=== PATIENT | male | born 1955 | race Caucasian/White ===

== ENCOUNTER → 2017-06-29 | Day surgery (SDC) | payer OTHER ==
[2017-06-28 09:00] VITALS: Ht 180.3 cm; Wt 80.9 kg
[~2017-06-29] VITALS: Ht 180.3 cm; Wt 80.9 kg
[~2017-06-29] MED LIST: ASPI81TA28 PO; ATEN50TA PO; CLOP1TAB15 PO; HYZ/10015 PO; IMDSR/30 PO; LACTATED RINGER'S 1000ML 1,000 ML IV ONE; LIDOCAINE HCL 2% 2 ML VIAL (20MG/ML) ONE; NTRGSL/4 UT; OMEP20TA PO; ONDANSETRON INJ 2 MG/ML 2 ML VIAL IV PRN; PROPOFOL IV EMULSION 10 MG/ML 20 ML VIAL IV ONE; ROSU5TAB PO
[2017-06-29 10:25] VITALS: TEMP 36.4
--- NOTE | 2017-06-29 10:31 | Endo History and Physical ---
History & Physical Date of Service: Jun 29, 2017. Chief Complaint: bloody stools and weight loss Referring Physician: Dr. Frank Leslie History of Present Illness Patient presents for colonoscopy to evaluate recurrent hematochezia. He also notes having some weight loss over the past 2-3 months. The patient did have a prior colonoscopy about 5 years ago. There is no family history of colorectal cancer stomach cancer or pancreatic cancer. Past Surgical History Hx Cardiac Surgery: Yes (HEART CATH, NO STENTS; RT CAROTID ARTERY STENT, LT ENDARTARECTOMY) Hx Internal Defibrillator: No Hx Pacemaker: No Hx Abdominal Surgery: Yes (BALWINDER) Hx of Implantable Prosthesis: No Hx Post-Op Nausea and Vomiting: No Hx Cancer Surgery: No Hx Thoracic Surgery: No Hx Orthopedic: No Hx Urinary Tract Surgery: No Family History None Social History Smoking Status: Current Every Day Smoker Hx Substance Use: No Hx Alcohol Use: No Allergies Coded Allergies: No Known Allergies (Verified , 06/29/17) Current Medications Reported Home Medications Medications Dose Route/Sig Max Daily Dose Days Date Category Tenormin (Atenolol) 50 Mg Tab 50 Mg PO QAM 06/28/17 Reported Nitrostat (Nitroglycerin) 0.4 Mg Tab 0.4 Mg UT UD PRN 06/28/17 Reported Hyzaar 25MG/100MG (HCTZ/Losartan Potassium) Tab 1 Tab PO QAM 06/28/17 Reported Omeprazole 20 Mg Tab 1 Tab PO QAM 06/28/17 Reported Crestor (Rosuvastatin Calcium) 5 Mg Tab 5 Mg PO QAM 06/28/17 Reported Plavix (Clopidogrel Bisulfate) 75 Mg Tab 75 Mg PO QAM 06/28/17 Reported Aspirin Ec (Aspirin) 81 Mg Tab 81 Mg PO QAM 06/28/17 Reported Vital Signs Weight (Kilograms): 80.91 Height (Feet): 5 Height (Inches): 11 Date Time Temp Pulse Resp B/P (MAP) Pulse Ox O2 Delivery O2 Flow Rate FiO2 06/29/17 10:25 36.4 95 20 151/68 (95) 100 Room Air Physical Exam General Appearance: no apparent distress Respiratory/Chest: Auscultation: breath sounds normal, no wheezing Cardiovascular: Heart Auscultation: RRR Abdomen: Inspection & Palpation: soft Assessment and Plan Colonoscopy for evaluation of hematochezia. We've discussed the risks and benefits of the procedure to include bleeding, infection, perforation, pain and missed polyps.
--- NOTE | 2017-06-29 11:02 | GI REPORT ---
Procedure Date: 06/29/2017 10:43 AM Procedure: Colonoscopy Indications: High risk colon cancer surveillance: Personal history of colonic polyps Medicines: Monitored Anesthesia Care Complications: No immediate complications. Estimated blood loss: Minimal. Estimated Blood Loss: Estimated blood loss was minimal. Procedure: Pre-Anesthesia Assessment: - Prior to the procedure, a History and Physical was performed, and patient medications, allergies and sensitivities were reviewed. The patient's tolerance of previous anesthesia was reviewed. - The risks and benefits of the procedure and the sedation options and risks were discussed with the patient. All questions were answered and informed consent was obtained. - Patient identification and proposed procedure were verified prior to the procedure by the physician, the nurse and the tire trucker. The procedure was verified in the procedure room. - Pre-procedure physical examination revealed no contraindications to sedation. - ASA Grade Assessment: III - A patient with severe systemic disease. - After reviewing the risks and benefits, the patient was deemed in satisfactory condition to undergo the procedure. - The anesthesia plan was to use monitored anesthesia care (MAC). - Immediately prior to administration of medications, the patient was re-assessed for adequacy to receive sedatives. - The heart rate, respiratory rate, oxygen saturations, blood pressure, adequacy of pulmonary ventilation, and response to care were monitored throughout the procedure. - The physical status of the patient was re-assessed after the procedure. After I obtained informed consent, the scope was passed under direct vision. Throughout the procedure, the patient's blood pressure, pulse, and oxygen saturations were monitored continuously. The scope was introduced through the anus and advanced to the terminal ileum. The colonoscopy was performed without difficulty. The patient tolerated the procedure well. The quality of the bowel preparation was good. Findings: The perianal and digital rectal examinations were normal. Pertinent negatives include normal sphincter tone. The terminal ileum appeared normal. Multiple small and large-mouthed diverticula were found in the sigmoid colon and in the descending colon. Internal hemorrhoids were found during retroflexion. The hemorrhoids were moderate. The exam was otherwise without abnormality. Impression: - The examined portion of the ileum was normal. - Moderate diverticulosis in the sigmoid colon and in the descending colon. - Internal hemorrhoids. - The examination was otherwise normal. Recommendation: - Discharge patient to home (ambulatory). - Advance diet as tolerated today. - Repeat colonoscopy in 5 years for surveillance. - Perform an upper GI endoscopy at appointment to be scheduled. Kary Mckeon D.O. Kary Mckeon, 06/29/2017 11:00:53 AM This report has been signed electronically. Note Initiated On: 06/29/2017 10:43 AM I attest to the content of the Intraoperative Record and orders documented therein, exceptions below
--- NOTE | 2017-06-29 11:02 | Discharge Instructions ---
Endoscopy Patient Instructions Date / Procedure(s) Performed Jun 29, 2017. Colonoscopy Allergy Information Coded Allergies: No Known Allergies (Verified , 06/29/17) Discharge Date / Findings Jun 29, 2017. Diverticulosis of the colon Internal hemorrhoids Medication Instructions Stopped Medication(s): stopped ASA and Plavix Sunday Reported Home Medications Medications Dose Route/Sig Max Daily Dose Days Date Category Tenormin (Atenolol) 50 Mg Tab 50 Mg PO QAM 06/28/17 Reported Nitrostat (Nitroglycerin) 0.4 Mg Tab 0.4 Mg UT UD PRN 06/28/17 Reported Hyzaar 25MG/100MG (HCTZ/Losartan Potassium) Tab 1 Tab PO QAM 06/28/17 Reported Omeprazole 20 Mg Tab 1 Tab PO QAM 06/28/17 Reported Crestor (Rosuvastatin Calcium) 5 Mg Tab 5 Mg PO QAM 06/28/17 Reported Plavix (Clopidogrel Bisulfate) 75 Mg Tab 75 Mg PO QAM 06/28/17 Reported Aspirin Ec (Aspirin) 81 Mg Tab 81 Mg PO QAM 06/28/17 Reported Provider Instructions Activity Restrictions - No exercising or heavy lifting for 24 hours. - Do not drink alcohol the day of the procedure. - Do not drive a car or operate machinery until the day after the procedure. - Do not make any important decisions or sign important papers in 24 hours after the procedure. Following Day: - Return to full activity which may include returning to work/school. Diet Start your diet with liquids and light foods (jello, soup, juice, toast). Then eat your usual diet if not nauseated. Treatment For Common After Affects For mild abdominal pain, bloating, or excessive gas: - Rest - Eat lightly - Lie on right side Follow-Up Information Repeat colonoscopy in 5 years Upper endoscopy to be scheduled due to his weight loss Anesthesia Information What You Should Know You have had a procedure that required some medicine to reduce anxiety and discomfort. This treatment is called moderate sedation. After receiving the treatment, you may be sleepy, but you will be able to breathe on your own. The effects of the treatment may last for several hours. Follow these instructions along with Activity/Diet recommendations noted above: * Do NOT do anything where dizziness or clumsiness would be dangerous. * Rest quietly at home today, then you can be up and about tomorrow. * Have a responsible person stay with you the rest of today. * You may have had an I.V. today. If so, you may take the dressing off later today. Recommendations Call your doctor if: * Trouble breathing * Continuous vomiting for more than 24 hours * Temperature above 101 degrees * Severe abdominal pain or bloating * Pain not relieved by pain medicine ordered * There is increased drainage or redness from any incision * A large amount of rectal bleeding greater than 2-3 tablespoons. (If you had a polyp/s removed or have hemorrhoids, a small amount of blood - from the rectum is to be expected.) * You have any unanswered questions or concerns. IN THE EVENT OF A SERIOUS EMERGENCY, GO TO THE NEAREST EMERGENCY ROOM Your discharge instructions were prepared by provider Kary Mckeon. Patient Instructions Signature Page Gustabo Patterson Patient (or Guardian) Signature/Date: I have read and understand the instructions given to me by my caregivers. Caregiver/RN/Doctor Signature/Date: The above-named patient and/or guardian has received patient instructions on this date. + Original Patient Signature Page (only) stays with chart. Please make copy for patient.
[2017-06-29 11:24] VITALS: BP 126/60; PULSE 65; O2SAT 99
--- NOTE | 2017-06-29 11:43 | Anesthesiology Progress Note ---
Anesthesia Post Op Note Date & Time Jun 29, 2017 at 11:43 Vital Signs Pain Intensity: 0 Vital Signs Past 12 Hours Date Time Temp Pulse Resp B/P (MAP) Pulse Ox O2 Delivery O2 Flow Rate FiO2 06/29/17 11:24 65 18 126/60 (82) 99 Room Air 06/29/17 11:12 66 18 134/62 (86) 100 Room Air 06/29/17 10:59 63 16 102/56 (71) 96 06/29/17 10:25 36.4 95 20 151/68 (95) 100 Room Air Notes Mental Status: alert / awake / arousable, participated in evaluation Pt Amnestic to Procedure: Yes Nausea / Vomiting: adequately controlled Pain: adequately controlled Airway Patency, RR, SpO2: stable & adequate BP & HR: stable & adequate Hydration State: stable & adequate Anesthetic Complications: no major complications apparent
== END | disposition home or self-care (01) ==
LOC: C.GI 09:44
PROVIDERS: ATTEND Internal Medicine Gastroenterology
DX: K92.1 Melena (principal); Z86.010 Personal history of colon polyps; R63.4 Abnormal weight loss; F17.200 Nicotine dependence, unspecified, uncomplicated; Z79.82 Long term (current) use of aspirin; I25.2 Old myocardial infarction; I10 Essential (primary) hypertension; I25.10 Atherosclerotic heart disease of native coronary artery without angina pectoris; I73.9 Peripheral vascular disease, unspecified; Z79.01 Long term (current) use of anticoagulants; K57.92 Diverticulitis of intestine, part unspecified, without perforation or abscess without bleeding; K64.8 Other hemorrhoids

== ENCOUNTER → 2017-08-06 | Day surgery (SDC) | payer OTHER ==
[2017-08-01 14:05] VITALS: Ht 180.3 cm; Wt 80.9 kg
[~2017-08-06] VITALS: Ht 180.3 cm; Wt 80.9 kg
[~2017-08-06] MED LIST changes: +LABETALOL HCL IV 5 MG/ML 20ML IV ONE; -LACTATED RINGER'S 1000ML 1,000 ML IV ONE; +MIDAZOLAM HCL 1 MG/ML 2ML VIAL ONE; +ONDANSETRON INJ 2 MG/ML 2 ML VIAL ONE
--- NOTE | 2017-08-06 08:28 | Endo History and Physical ---
History & Physical Date of Service: Aug 06, 2017. Chief Complaint: weight loss Referring Physician: VINCENT Arciniega History of Present Illness Patient with unexplained weight loss, for EGD today. Does not occasional solid food dysphagia. Past Surgical History Hx Cardiac Surgery: Yes (HEART CATH, NO STENTS; RT CAROTID ARTERY STENT, LT ENDARTARECTOMY) Hx Internal Defibrillator: No Hx Pacemaker: No Hx Abdominal Surgery: Yes (BALWINDER) Hx of Implantable Prosthesis: No Hx Post-Op Nausea and Vomiting: No Hx Cancer Surgery: No Hx Thoracic Surgery: No Hx Orthopedic: No Hx Urinary Tract Surgery: No Family History None Social History Smoking Status: Current Every Day Smoker Hx Substance Use: No Hx Alcohol Use: No Allergies Coded Allergies: No Known Allergies (Verified , 08/01/17) Current Medications Reported Home Medications Medications Dose Route/Sig Max Daily Dose Days Date Category Isosorbide Mononitrate ER (Isosorbide Mononitrate) 30 Mg Tabcr 2 Tabs PO QAM 08/01/17 Reported Tenormin (Atenolol) 50 Mg Tab 50 Mg PO QAM 06/28/17 Reported Nitrostat (Nitroglycerin) 0.4 Mg Tab 0.4 Mg UT UD PRN 06/28/17 Reported Hyzaar 25MG/100MG (HCTZ/Losartan Potassium) Tab 1 Tab PO QAM 06/28/17 Reported Omeprazole 20 Mg Tab 1 Tab PO QAM 06/28/17 Reported Crestor (Rosuvastatin Calcium) 5 Mg Tab 5 Mg PO QAM 06/28/17 Reported Plavix (Clopidogrel Bisulfate) 75 Mg Tab 75 Mg PO QAM 06/28/17 Reported Aspirin Ec (Aspirin) 81 Mg Tab 81 Mg PO QAM 06/28/17 Reported Vital Signs Weight (Kilograms): 80.91 Height (Feet): 5 Height (Inches): 11 Date Time Temp Pulse Resp B/P (MAP) Pulse Ox O2 Delivery O2 Flow Rate FiO2 08/06/17 08:10 37.1 62 20 100 Room Air Physical Exam General Appearance: no apparent distress Respiratory/Chest: Auscultation: deminished air movement Cardiovascular: Heart Auscultation: RRR Abdomen: Inspection & Palpation: soft Assessment and Plan Patient for EGD today to evaluate unexplained weight loss.
--- NOTE | 2017-08-06 09:09 | Discharge Instructions ---
Endoscopy Patient Instructions Date / Procedure(s) Performed Aug 06, 2017. EGD Allergy Information Coded Allergies: No Known Allergies (Verified , 08/01/17) Discharge Date / Findings Aug 06, 2017. Mass of the distal esophagus Medication Instructions Stopped Medication(s): Patient was told to stop aspirin and plavix. Reported Home Medications Medications Dose Route/Sig Max Daily Dose Days Date Category Isosorbide Mononitrate ER (Isosorbide Mononitrate) 30 Mg Tabcr 2 Tabs PO QAM 08/01/17 Reported Tenormin (Atenolol) 50 Mg Tab 50 Mg PO QAM 06/28/17 Reported Nitrostat (Nitroglycerin) 0.4 Mg Tab 0.4 Mg UT UD PRN 06/28/17 Reported Hyzaar 25MG/100MG (HCTZ/Losartan Potassium) Tab 1 Tab PO QAM 06/28/17 Reported Omeprazole 20 Mg Tab 1 Tab PO QAM 06/28/17 Reported Crestor (Rosuvastatin Calcium) 5 Mg Tab 5 Mg PO QAM 06/28/17 Reported Plavix (Clopidogrel Bisulfate) 75 Mg Tab 75 Mg PO QAM 06/28/17 Reported Aspirin Ec (Aspirin) 81 Mg Tab 81 Mg PO QAM 06/28/17 Reported Provider Instructions Activity Restrictions - No exercising or heavy lifting for 24 hours. - Do not drink alcohol the day of the procedure. - Do not drive a car or operate machinery until the day after the procedure. - Do not make any important decisions or sign important papers in 24 hours after the procedure. Following Day: - Return to full activity which may include returning to work/school. Diet Start your diet with liquids and light foods (jello, soup, juice, toast). Then eat your usual diet if not nauseated. Treatment For Common After Affects For mild abdominal pain, bloating, or excessive gas: - Rest - Eat lightly - Lie on right side Follow-Up Information CT of the Chest and abdomen Endoscopic Ultrasound PET scan Referral to thoracic tumor board and medical oncology Anesthesia Information What You Should Know You have had a procedure that required some medicine to reduce anxiety and discomfort. This treatment is called moderate sedation. After receiving the treatment, you may be sleepy, but you will be able to breathe on your own. The effects of the treatment may last for several hours. Follow these instructions along with Activity/Diet recommendations noted above: * Do NOT do anything where dizziness or clumsiness would be dangerous. * Rest quietly at home today, then you can be up and about tomorrow. * Have a responsible person stay with you the rest of today. * You may have had an I.V. today. If so, you may take the dressing off later today. Recommendations Call your doctor if: * Trouble breathing * Continuous vomiting for more than 24 hours * Temperature above 101 degrees * Severe abdominal pain or bloating * Pain not relieved by pain medicine ordered * There is increased drainage or redness from any incision * A large amount of rectal bleeding greater than 2-3 tablespoons. (If you had a polyp/s removed or have hemorrhoids, a small amount of blood - from the rectum is to be expected.) * You have any unanswered questions or concerns. IN THE EVENT OF A SERIOUS EMERGENCY, GO TO THE NEAREST EMERGENCY ROOM Your discharge instructions were prepared by provider Kary Mckeon. Patient Instructions Signature Page uGstabo Patterson Patient (or Guardian) Signature/Date: I have read and understand the instructions given to me by my caregivers. Caregiver/RN/Doctor Signature/Date: The above-named patient and/or guardian has received patient instructions on this date. + Original Patient Signature Page (only) stays with chart. Please make copy for patient.
--- NOTE | 2017-08-06 09:09 | GI REPORT ---
Procedure Date: 08/06/2017 8:41 AM Procedure: Upper GI endoscopy Indications: Dysphagia, Weight loss Medicines: Monitored Anesthesia Care Complications: No immediate complications. Estimated blood loss: Minimal. Estimated Blood Loss: Estimated blood loss was minimal. Procedure: Pre-Anesthesia Assessment: - Prior to the procedure, a History and Physical was performed, and patient medications, allergies and sensitivities were reviewed. The patient's tolerance of previous anesthesia was reviewed. - The risks and benefits of the procedure and the sedation options and risks were discussed with the patient. All questions were answered and informed consent was obtained. - Patient identification and proposed procedure were verified prior to the procedure by the physician, the nurse and the banquet line cook. The procedure was verified in the procedure room. - Pre-procedure physical examination revealed no contraindications to sedation. - ASA Grade Assessment: III - A patient with severe systemic disease. - After reviewing the risks and benefits, the patient was deemed in satisfactory condition to undergo the procedure. - The anesthesia plan was to use general anesthesia. - Immediately prior to administration of medications, the patient was re-assessed for adequacy to receive sedatives. - The heart rate, respiratory rate, oxygen saturations, blood pressure, adequacy of pulmonary ventilation, and response to care were monitored throughout the procedure. - The physical status of the patient was re-assessed after the procedure. After obtaining informed consent, the endoscope was passed under direct vision. Throughout the procedure, the patient's blood pressure, pulse, and oxygen saturations were monitored continuously. The Scope was introduced through the mouth, and advanced to the second part of duodenum. The upper GI endoscopy was accomplished without difficulty. The patient tolerated the procedure well. Findings: The upper third of the esophagus and middle third of the esophagus were normal. A large, fungating mass with bleeding was found in the lower third of the esophagus extending to the gastroesophageal junction and cardia. The mass began at 37 cm and extended to 44 cm. The mass was partially obstructing and circumferential. Biopsies were taken with a cold forceps for histology. Cells for cytology were obtained by brushing. Estimated blood loss was minimal. The gastric fundus, gastric body, incisura and gastric antrum were normal. The examined duodenum was normal. Impression: - Normal upper third of esophagus and middle third of esophagus. 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 Biopsied. Cells for cytology obtained. - Normal gastric fundus, gastric body, incisura and antrum. - Normal examined duodenum. Recommendation: - Discharge patient to home (ambulatory). - Mechanical soft diet. - Perform an upper endoscopic ultrasound (UEUS) at appointment to be scheduled. - Perform CT scan (computed tomography) of the chest with contrast at appointment to be scheduled. - Perform a PET-CT scan of the chest and abdomen at appointment to be scheduled. - Refer to thoracic tumor board + medical oncology. Kary Mckeon D.O. Kary Mckeon, 08/06/2017 9:08:29 AM This report has been signed electronically. Note Initiated On: 08/06/2017 8:41 AM I attest to the content of the Intraoperative Record and orders documented therein, exceptions below
--- NOTE | 2017-08-06 09:14 | Anesthesiology Progress Note ---
Anesthesia Post Op Note Date & Time Aug 06, 2017 at 09:14 Vital Signs Pain Intensity: 0 Vital Signs Past 12 Hours Date Time Temp Pulse Resp B/P (MAP) Pulse Ox O2 Delivery O2 Flow Rate FiO2 08/06/17 08:10 37.1 62 20 180/108 (132) 100 Room Air Notes Mental Status: alert / awake / arousable, participated in evaluation Pt Amnestic to Procedure: Yes Nausea / Vomiting: adequately controlled Pain: adequately controlled Airway Patency, RR, SpO2: stable & adequate BP & HR: stable & adequate Hydration State: stable & adequate Anesthetic Complications: no major complications apparent
[2017-08-06 09:35] VITALS: BP 147/84; PULSE 64; O2SAT 95
== END | disposition home or self-care (01) ==
LOC: C.GI 07:44
PROVIDERS: ATTEND Internal Medicine Gastroenterology
DX: C15.5 Malignant neoplasm of lower third of esophagus (principal); I25.10 Atherosclerotic heart disease of native coronary artery without angina pectoris; I10 Essential (primary) hypertension; F17.200 Nicotine dependence, unspecified, uncomplicated; I25.2 Old myocardial infarction; Z90.49 Acquired absence of other specified parts of digestive tract; Z79.82 Long term (current) use of aspirin

== ENCOUNTER → 2017-08-09 | Day surgery (SDC) | payer OTHER ==
[2017-08-07 15:52] VITALS: BMI 24.0
[~2017-08-09] VITALS: Ht 180.3 cm; Wt 80.9 kg
[~2017-08-09] MED LIST changes: +ATROPINE SULFATE 0.1 MG/ML 5ML SYR IV PRN; +DEXAMETHASONE SOD INJ 4 MG/ML VIAL ONE; +EpHEDrine SULFATE 50MG/5ML SYR ONE; +EpHEDrine SULFATE INJ 50 MG/ML AMP IV PRN; +FENTANYL CITRATE INJ 50 MCG/1 ML 2 ML VIAL IV PRN; +FENTANYL CITRATE INJ 50 MCG/1 ML 2 ML VIAL ONE; +HYDROmorphone INJ 1 MG/ML SYR IV PRN; -LABETALOL HCL IV 5 MG/ML 20ML IV ONE; +LACTATED RINGER'S 1000ML 1,000 ML IV SCH; +ROCURONIUM BROMIDE 10 MG/ML 5 ML VIAL IV ONE
[2017-08-09 10:24] VITALS: BP 137/76; PULSE 60; TEMP 36.6; O2SAT 97; Ht 180.3 cm; Wt 80.9 kg
--- NOTE | 2017-08-09 10:51 | Endo History and Physical ---
History & Physical Date of Service: Aug 09, 2017. Chief Complaint: Esophageal mass Referring Physician: History of Present Illness 61-year-old male presented with weight loss over several months. He underwent a recent upper endoscopy was found to have a 6 cm esophageal mass. He presents for endoscopic ultrasound for staging of his esophageal cancer. Past Surgical History Hx Cardiac Surgery: Yes (HEART CATH,NO STENT; RT CAROTID ARTER STENT, LT ENDARTARECTOMY) Hx Internal Defibrillator: No Hx Pacemaker: No Hx Abdominal Surgery: Yes ([facility]) Hx Post-Op Nausea and Vomiting: No Hx Cancer Surgery: No Hx Thoracic Surgery: No Hx Orthopedic: No Hx Urinary Tract Surgery: No Social History Smoking Status: Current Every Day Smoker Hx Substance Use: No Hx Alcohol Use: No Allergies Coded Allergies: No Known Allergies (Verified , 08/09/17) Current Medications Reported Home Medications Medications Dose Route/Sig Max Daily Dose Days Date Category Isosorbide Mononitrate ER (Isosorbide Mononitrate) 30 Mg Tabcr 2 Tabs PO QAM 08/01/17 Reported Tenormin (Atenolol) 50 Mg Tab 50 Mg PO QAM 06/28/17 Reported Nitrostat (Nitroglycerin) 0.4 Mg Tab 0.4 Mg UT UD PRN 06/28/17 Reported Hyzaar 25MG/100MG (HCTZ/Losartan Potassium) Tab 1 Tab PO QAM 06/28/17 Reported Omeprazole 20 Mg Tab 1 Tab PO QAM 06/28/17 Reported Crestor (Rosuvastatin Calcium) 5 Mg Tab 5 Mg PO QAM 06/28/17 Reported Plavix (Clopidogrel Bisulfate) 75 Mg Tab 75 Mg PO QAM 06/28/17 Reported Aspirin Ec (Aspirin) 81 Mg Tab 81 Mg PO QAM 06/28/17 Reported Vital Signs Weight (Kilograms): 80.91 Height (Feet): 5 Height (Inches): 11 Date Time Temp Pulse Resp B/P (MAP) Pulse Ox O2 Delivery O2 Flow Rate FiO2 08/09/17 10:24 36.6 60 18 137/76 (96) 97 Room Air Physical Exam General Appearance: no apparent distress Respiratory/Chest: Auscultation: deminished air movement Cardiovascular: Heart Auscultation: RRR Abdomen: Inspection & Palpation: soft Assessment and Plan We have discussed the risks and benefits of endoscopic ultrasound to include bleeding, infection, perforation. We have also discussed the potential need for dilation of the esophageal tumor.
--- NOTE | 2017-08-09 12:23 | GI REPORT ---
Procedure Date: 08/09/2017 11:10 AM Procedure: Upper EUS Indications: Staging of esophageal adenocarcinoma Medicines: General Anesthesia Complications: No immediate complications. Estimated blood loss: Minimal. Estimated Blood Loss: Estimated blood loss was minimal. Procedure: Pre-Anesthesia Assessment: - Prior to the procedure, a History and Physical was performed, and patient medications, allergies and sensitivities were reviewed. The patient's tolerance of previous anesthesia was reviewed. - The risks and benefits of the procedure and the sedation options and risks were discussed with the patient. All questions were answered and informed consent was obtained. - Patient identification and proposed procedure were verified prior to the procedure by the physician, the nurse and the school fundraising director. The procedure was verified in the procedure room. - Pre-procedure physical examination revealed no contraindications to sedation. - ASA Grade Assessment: IV - A patient with severe systemic disease that is a constant threat to life. - After reviewing the risks and benefits, the patient was deemed in satisfactory condition to undergo the procedure. - The anesthesia plan was to use general anesthesia. - Immediately prior to administration of medications, the patient was re-assessed for adequacy to receive sedatives. - The heart rate, respiratory rate, oxygen saturations, blood pressure, adequacy of pulmonary ventilation, and response to care were monitored throughout the procedure. - The physical status of the patient was re-assessed after the procedure. After obtaining informed consent, the endoscope was passed under direct vision. Throughout the procedure, the patient's blood pressure, pulse, and oxygen saturations were monitored continuously. The Endosonoscope was introduced through the mouth, and advanced to the second part of duodenum. The Endosonoscope was introduced through the mouth, and advanced to the second part of duodenum. The upper EUS was accomplished without difficulty. The patient tolerated the procedure well. Findings: Endosonographic Finding : There was no sign of significant endosonographic abnormality in the ampulla. No masses were identified. There was no sign of significant endosonographic abnormality in the common bile duct. The maximum diameter of the duct was 4 mm. No stones, no biliary sludge and ducts of normal caliber were identified. There was no sign of significant endosonographic abnormality in the entire pancreas. The pancreatic duct measured up to 2 mm in diameter. No masses, no cysts, the pancreatic duct was thin in caliber. There was no sign of significant endosonographic abnormality in the left lobe of the liver. No focal pathology and no masses were identified. There was no sign of significant endosonographic abnormality in the left adrenal gland. No adrenal gland enlargement was identified. A few lymph nodes were visualized with the ultrasound probe in the subcarinal mediastinum (level 7). The nodes were oval, hypoechoic and had poorly defined margins. The first node measured 25 mm by 6 mm. Fine needle aspiration for cytology was performed. Color Doppler imaging was utilized prior to needle puncture to confirm a lack of significant vascular structures within the needle path. Three passes were made with the 22 gauge needle using a transesophageal approach. A stylet was used. A mirror fabrication supervisor was present to evaluate the adequacy of the specimen. Final cytology results are pending. Estimated blood loss was minimal. A few lymph nodes were visualized with the ultrasound probe in the darcie hepatis region. The nodes were round, hypoechoic and had well defined margins. The first node measured 11 mm by 7 mm. Fine needle aspiration for cytology was performed. Color Doppler imaging was utilized prior to needle puncture to confirm a lack of significant vascular structures within the needle path. Three passes were made with the 22 gauge needle using a transduodenal approach. A stylet was used. A mirror fabrication supervisor was present to evaluate the adequacy of the specimen. Final cytology results are pending. Estimated blood loss was minimal. A hypoechoic mass was found in the gastroesophageal junction. The mass was encountered at 37 cm from the incisors and extended to 44 cm. The lesion was circumferential. The endosonographic borders were poorly-defined. The mass measured up to 17 mm in thickness. There was sonographic evidence suggesting invasion into the adventitia (Layer 5). An intact interface was seen between the mass and the trachea, left pleura, right pleura, diaphragm, spine and liver suggesting a lack of invasion. A few abnormal lymph nodes were visualized in the perigastric region. The largest measured 15 mm by 15 mm in maximal cross-sectional diameter. The nodes were round, hypoechoic and had well defined margins. FNA not performed as it was adjacent to the primary mass. Impression: - Normal ampulla. - Normal common bile duct. - Normal pancreas. - Normal left lobe of the liver. - Endosonographic images of the left adrenal gland were unremarkable. - A few lymph nodes were visualized and measured in the subcarinal mediastinum (level 7). Fine needle aspiration performed. - A few lymph nodes were visualized and measured in the darcie hepatis region. Fine needle aspiration performed. - A mass was found in the gastroesophageal junction. The diagnosis is adenocarcinoma. This was staged T3 N2 Mx by endosonographic criteria. - A few abnormal lymph nodes were visualized in the perigastric region. Recommendation: - Discharge patient to home (ambulatory). - Mechanical soft diet today. - Await cytology results. Kary Mckeon D.O. Kary Mckeon, 08/09/2017 12:22:32 PM This report has been signed electronically. Note Initiated On: 08/09/2017 11:10 AM I attest to the content of the Intraoperative Record and orders documented therein, exceptions below
--- NOTE | 2017-08-09 12:24 | Discharge Instructions ---
Endoscopy Patient Instructions Date / Procedure(s) Performed Aug 09, 2017. Other (Endoscopic ultrasound) Allergy Information Coded Allergies: No Known Allergies (Verified , 08/09/17) Discharge Date / Findings Aug 09, 2017. Esophageal mass Several lymph nodes found. FNA performed. Medication Instructions Reported Home Medications Medications Dose Route/Sig Max Daily Dose Days Date Category Isosorbide Mononitrate ER (Isosorbide Mononitrate) 30 Mg Tabcr 2 Tabs PO QAM 08/01/17 Reported Tenormin (Atenolol) 50 Mg Tab 50 Mg PO QAM 06/28/17 Reported Nitrostat (Nitroglycerin) 0.4 Mg Tab 0.4 Mg UT UD PRN 06/28/17 Reported Hyzaar 25MG/100MG (HCTZ/Losartan Potassium) Tab 1 Tab PO QAM 06/28/17 Reported Omeprazole 20 Mg Tab 1 Tab PO QAM 06/28/17 Reported Crestor (Rosuvastatin Calcium) 5 Mg Tab 5 Mg PO QAM 06/28/17 Reported Plavix (Clopidogrel Bisulfate) 75 Mg Tab 75 Mg PO QAM 06/28/17 Reported Aspirin Ec (Aspirin) 81 Mg Tab 81 Mg PO QAM 06/28/17 Reported Provider Instructions Activity Restrictions - No exercising or heavy lifting for 24 hours. - Do not drink alcohol the day of the procedure. - Do not drive a car or operate machinery until the day after the procedure. - Do not make any important decisions or sign important papers in 24 hours after the procedure. Following Day: - Return to full activity which may include returning to work/school. Diet Start your diet with liquids and light foods (jello, soup, juice, toast). Then eat your usual diet if not nauseated. Treatment For Common After Affects For mild abdominal pain, bloating, or excessive gas: - Rest - Eat lightly - Lie on right side Follow-Up Information Await pathology results from today. Referral to medical oncology Referral to thoracic medicine Anesthesia Information What You Should Know You have had a procedure that required some medicine to reduce anxiety and discomfort. This treatment is called moderate sedation. After receiving the treatment, you may be sleepy, but you will be able to breathe on your own. The effects of the treatment may last for several hours. Follow these instructions along with Activity/Diet recommendations noted above: * Do NOT do anything where dizziness or clumsiness would be dangerous. * Rest quietly at home today, then you can be up and about tomorrow. * Have a responsible person stay with you the rest of today. * You may have had an I.V. today. If so, you may take the dressing off later today. Recommendations Call your doctor if: * Trouble breathing * Continuous vomiting for more than 24 hours * Temperature above 101 degrees * Severe abdominal pain or bloating * Pain not relieved by pain medicine ordered * There is increased drainage or redness from any incision * A large amount of rectal bleeding greater than 2-3 tablespoons. (If you had a polyp/s removed or have hemorrhoids, a small amount of blood - from the rectum is to be expected.) * You have any unanswered questions or concerns. IN THE EVENT OF A SERIOUS EMERGENCY, GO TO THE NEAREST EMERGENCY ROOM Your discharge instructions were prepared by provider Kary Mckeon. Patient Instructions Signature Page Gustabo Patterson Patient (or Guardian) Signature/Date: I have read and understand the instructions given to me by my caregivers. Caregiver/RN/Doctor Signature/Date: The above-named patient and/or guardian has received patient instructions on this date. + Original Patient Signature Page (only) stays with chart. Please make copy for patient.
--- NOTE | 2017-08-09 12:26 | [facility] Post Operative Brief Note ---
Immediate Operative Summary Operative Date Aug 09, 2017. Pre-Operative Diagnosis esophogeal mass Post-Operative Diagnosis same Procedure(s) Performed Upper Endoscopic Ultrasonography Surgeon Dr. Dayron Mckeon Resin Filterer Surgeon(s) none Estimated Blood Loss 0 ml Findings Esopahgeal mass Rebecca hepatis, perigastric and subcarinal LN Specimens FNA x 2 1) Portahepatis LN 2) Subcarinal LN Anesthesia General Complication(s) None Disposition Recovery Room / PACU
[2017-08-09 12:50] VITALS: BP 167/90; PULSE 55; TEMP 36.2; O2SAT 97
[2017-08-09 13:20] VITALS: BP 149/74; PULSE 60; TEMP 36.4; O2SAT 98
--- NOTE | 2017-08-09 14:39 | Anesthesiology Progress Note ---
Anesthesia Post Op Note Date & Time Aug 09, 2017 at 14:39 Vital Signs Pain Intensity: 0 Vital Signs Past 12 Hours Date Time Temp Pulse Resp B/P (MAP) Pulse Ox O2 Delivery O2 Flow Rate FiO2 08/09/17 13:20 36.4 60 18 149/74 98 Room Air 08/09/17 12:50 36.2 55 18 167/90 97 Room Air 08/09/17 12:38 36.1 57 20 157/79 97 Room Air 08/09/17 12:38 55 13 08/09/17 12:38 56 13 99 08/09/17 12:36 157/79 08/09/17 12:33 58 14 08/09/17 12:33 60 14 97 08/09/17 12:31 158/75 08/09/17 12:28 67 19 97 08/09/17 12:28 66 19 08/09/17 12:26 156/80 08/09/17 12:23 60 12 96 08/09/17 12:23 63 12 08/09/17 12:21 161/91 08/09/17 12:18 60 13 96 08/09/17 12:18 62 13 08/09/17 12:16 154/91 08/09/17 12:13 59 6 100 08/09/17 12:13 60 6 08/09/17 12:11 151/85 08/09/17 12:08 63 18 100 08/09/17 12:08 64 18 08/09/17 12:07 165/84 08/09/17 12:03 36.1 63 16 157/87 100 Mask 10 08/09/17 12:03 157/83 08/09/17 10:24 36.6 60 18 137/76 (96) 97 Room Air Notes Mental Status: alert / awake / arousable, participated in evaluation Pt Amnestic to Procedure: Yes Nausea / Vomiting: adequately controlled Pain: adequately controlled Airway Patency, RR, SpO2: stable & adequate BP & HR: stable & adequate Hydration State: stable & adequate Anesthetic Complications: no major complications apparent
== END | disposition home or self-care (01) ==
LOC: C.ACU 09:58
PROVIDERS: ATTEND Internal Medicine Gastroenterology
DX: C16.0 Malignant neoplasm of cardia (principal); F17.200 Nicotine dependence, unspecified, uncomplicated; Z79.02 Long term (current) use of antithrombotics/antiplatelets; Z79.82 Long term (current) use of aspirin; Z79.899 Other long term (current) drug therapy

== ENCOUNTER 2017-10-08 00:43 | Emergency (ER) | payer OTHER ==
[~2017-10-08] VITALS: Ht 177.8 cm; Wt 64.5 kg
[~2017-10-08 00:43] MED LIST changes: -ATROPINE SULFATE 0.1 MG/ML 5ML SYR IV PRN; -DEXAMETHASONE SOD INJ 4 MG/ML VIAL ONE; -EpHEDrine SULFATE 50MG/5ML SYR ONE; -EpHEDrine SULFATE INJ 50 MG/ML AMP IV PRN; +FENT25DI10 TD; -FENTANYL CITRATE INJ 50 MCG/1 ML 2 ML VIAL IV PRN; -FENTANYL CITRATE INJ 50 MCG/1 ML 2 ML VIAL ONE; -HYDROmorphone INJ 1 MG/ML SYR IV PRN; -LACTATED RINGER'S 1000ML 1,000 ML IV SCH; -LIDOCAINE HCL 2% 2 ML VIAL (20MG/ML) ONE; -MIDAZOLAM HCL 1 MG/ML 2ML VIAL ONE; +ONDA8TAB6 PO; -ONDANSETRON INJ 2 MG/ML 2 ML VIAL IV PRN; -ONDANSETRON INJ 2 MG/ML 2 ML VIAL ONE; -PROPOFOL IV EMULSION 10 MG/ML 20 ML VIAL IV ONE; -ROCURONIUM BROMIDE 10 MG/ML 5 ML VIAL IV ONE
[2017-10-08 00:46] VITALS: Ht 177.8 cm; Wt 64.5 kg
[2017-10-08] MEDS ORDERED: ONDANSETRON INJ 2 MG/ML 2 ML VIAL IV STA (00:57)
[2017-10-08] MEDS ORDERED: PANTOprazole INJ 40 MG in SYRINGE 0 ML IV ONE (01:00)
[2017-10-08] MEDS ORDERED: FENTANYL CITRATE INJ 50 MCG/1 ML 2 ML VIAL IV ONE ×2 (01:00→05:00)
[2017-10-08] MEDS ORDERED: SODIUM CHLORIDE 0.9% 1000ML 1,000 ML IV ONE ×3 (01:00→05:00)
[2017-10-08] MEDS ORDERED: OPTIRAY 320 IV PRN (01:15)
[2017-10-08 01:19] LABS: COMPLETE YES; EOS % 0.3 %; HEMATOCRIT 46.4 % (42-52); IG% 0.5 %; LYMPH % 8.4 %; LYMPH ABS # 0.31 K/uL (1.2-3.4); MEAN CELL VOLUME 85.8 fL (80-100); MEAN CORPUSCULAR HEMOGLOBIN 31.4 pg (25-34); MEAN CORPUSCULAR HGB CONC 36.6 g/dl (32-36); MEAN PLATELET VOLUME 10.3 fL (7.4-10.4); NEUT % 86.8 %; PLATELET COUNT 161 K/uL (130-400); RED BLOOD COUNT 5.41 M/uL (4.7-6.1); WHITE BLOOD COUNT 3.71 K/uL (4.8-10.8)
[2017-10-08 01:27] LABS: PARTIAL THROMBOPLASTIN RATIO 1.1; PROTHROMBIN TIME (PATIENT) 11.1 SECONDS (9.0-12.0)
[2017-10-08 01:40] LABS: BUN/CREATININE RATIO 24.2 (10-20); CALCIUM 9.1 mg/dl (8.5-10.1); CREATININE 0.63 mg/dl (0.60-1.40)
[2017-10-08 01:42] LABS: ALB/GLOB RATIO 0.7 (0.9-2)
[2017-10-08] MEDS ORDERED: MoRPHine SULFATE 4 MG/ML 1 ML CARP\\VIAL IV ONE (02:00)
[2017-10-08] MEDS ORDERED: CEFEPIME IV 2,000 MG in DEXTROSE 5% 100ML 100 ML IV ONE (02:15)
[2017-10-08] MEDS ORDERED: DAPTOMYCIN IV SCH (02:15)
[2017-10-08] MEDS ORDERED: DAPTOmycin IV 390 MG in SODIUM CHLORIDE 0.9% 50ML 50 ML IV ONE (02:15)
[2017-10-08] MEDS ORDERED: CEFEPIME IV 2,000 MG in SYRINGE 7.5 ML IV SCH (02:15)
[2017-10-08] MEDS: MoRPHine SULFATE 4 MG/ML 1 ML CARP\\VIAL IV PRN ×3 (02:40→04:07)
[2017-10-08] MEDS ORDERED: NURSING VERBAL MED ORDER ONE ×2 (03:00→05:00)
[2017-10-08 04:00] VITALS: O2SAT 95
[2017-10-08 04:34] VITALS: TEMP 36.6
[2017-10-08 05:46] VITALS: BP 113/65
[2017-10-08 05:51] VITALS: PULSE 122; O2SAT 95
--- NOTE | 2017-10-08 06:10 | Medical Consult ---
Consultation Date of Consultation: Oct 08, 2017. Attending Physician: Reason for Consultation: pneumoperitoneum History of Present Illness 62-year-old male with distal esophageal carcinoma currently undergoing chemotherapy and presented to the emergency department with several hours of abdominal pain. Pain started last night at 23:00. Sudden onset, sharp in character, continue to get worse. He presented to the emergency department and had a CT scan which showed free air under the diaphragm and some fluid in his pelvis. It was believed to be that his perforation was likely at the site of his cancer. He is unclear as to what chemotherapy agents he is on, we unable to look this up in his records. He just had his fifth treatment last week. He is planned to be transferred to [facility] in [place] where he is getting his treatments however he had a period of hypotension, I was called to assess him prior to transport. Currently he is in pain but in mild distress , he appears to be mentating well. The patient is on Plavix. Past Medical/Surgical History Medical history: Gastroesophageal cancer, hypertension, tobacco use, history of myocardial infarction Surgical history: Cholecystectomy Family History Noncontributory Social History Smoking Status: Current Every Day Smoker Allergies Coded Allergies: No Known Allergies (Verified , 08/09/17) Home Medications Active Reported Zofran (Ondansetron HCl) 8 Mg Tab 8 Mg PO Q8 PRN Duragesic (Fentanyl) 25 Mcg/Hr Dis 12 Mcg TD [id number] Isosorbide Mononitrate ER (Isosorbide Mononitrate) 30 Mg Tabcr 2 Tabs PO QAM Tenormin (Atenolol) 50 Mg Tab 50 Mg PO QAM Nitrostat (Nitroglycerin) 0.4 Mg Tab 0.4 Mg UT UD PRN Hyzaar 25MG/100MG (HCTZ/Losartan Potassium) Tab 1 Tab PO QAM Omeprazole 20 Mg Tab 1 Tab PO QAM Crestor (Rosuvastatin Calcium) 5 Mg Tab 5 Mg PO QAM Plavix (Clopidogrel Bisulfate) 75 Mg Tab 75 Mg PO QAM Aspirin Ec (Aspirin) 81 Mg Tab 81 Mg PO QAM Current Inpatient Medications Current Inpatient Medications Medications (Trade) Dose Ordered Sig/Zahira Route Start Time Stop Time Status Last Admin Dose Admin Ioversol (Optiray 320) 100 ml UD PRN IV 10/08/17 01:15 10/12/17 01:14 Morphine Sulfate (MoRPHine SULFATE INJ) 4 mg Q30M PRN IV 10/08/17 02:15 10/22/17 02:14 10/08/17 04:07 4 MG Sodium Chloride 1,000 ml @ 999 mls/hr Q1H1M ONCE IV 10/08/17 05:00 10/08/17 06:00 10/08/17 04:45 999 MLS/HR Review of Systems 10 point review of systems negative except as above Physical Exam Date Time Temp Pulse Resp B/P (MAP) Pulse Ox O2 Delivery O2 Flow Rate FiO2 10/08/17 05:31 128/73 10/08/17 05:21 115 33 96 10/08/17 05:16 116/75 10/08/17 05:12 112 10/08/17 05:08 132/87 10/08/17 05:06 115 95 10/08/17 05:01 98/10/08/17 04:51 123 36 96 10/08/17 04:46 105/63 10/08/17 04:36 130 32 96 10/08/17 04:34 36.6 10/08/17 04:31 108/67 10/08/17 04:21 132 29 94 10/08/17 04:16 110/70 10/08/17 04:06 131 25 94 Nasal Cannula 2.0 10/08/17 04:01 98/10/08/17 04:00 95 Nasal Cannula 2.0 10/08/17 03:51 123 19 91 10/08/17 03:46 88/54 10/08/17 03:38 125 22 93 10/08/17 03:31 111/76 10/08/17 03:23 119 27 94 10/08/17 03:18 98/57 10/08/17 03:16 94/58 10/08/17 03:11 119/47 10/08/17 03:08 117 23 89 10/08/17 03:01 88/69 10/08/17 02:53 123 28 92 10/08/17 02:48 117 24 92 10/08/17 02:46 104/56 10/08/17 02:45 83/69 10/08/17 02:36 95/55 10/08/17 02:33 118 22 90 10/08/17 02:31 88/58 10/08/17 02:18 114 23 91 10/08/17 02:03 109 26 94 10/08/17 02:01 105/73 10/08/17 01:43 103 27 10/08/17 01:31 149/81 10/08/17 01:28 94 22 95 10/08/17 01:16 99 10/08/17 01:13 98 19 97 Room Air 10/08/17 01:10 169/106 10/08/17 00:46 36.4 100 20 137/83 98 Room Air General Appearance: WD/WN, + mild distress Head: normocephalic, atraumatic Eyes: normal inspection, PERRL ENT: normal ENT inspection, hearing grossly normal Neck: supple, no adenopathy Respiratory/Chest: chest non-tender, no respiratory distress, no accessory muscle use, + crackles Cardiovascular: no JVD, no murmur, normal peripheral pulses, + tachycardia Abdomen/GI: soft, no organomegaly, no pulsatile mass, + tenderness (diffusely tender to palpation in all 4 quadrants, no overt peritonitis) Back: normal inspection, no CVA tenderness Extremities/Musculoskelatal: normal inspection, no calf tenderness, no pedal edema Neurologic/Psych: reliner II-XII nml as tested, alert, normal mood/affect, oriented x 3 Skin: normal color, warm/dry, no rash Lymphatic: no adenopathy Laboratory Results Last 24 Hours Test 10/08/17 01:00 10/08/17 01:06 10/08/17 02:33 White Blood Count 3.71 K/uL Red Blood Count 5.41 M/uL Hemoglobin 17.0 g/dL Hematocrit 46.4 % Mean Corpuscular Volume 85.8 fL Mean Corpuscular Hemoglobin 31.4 pg Mean Corpuscular Hemoglobin Concent 36.6 g/dl Platelet Count 161 K/uL Mean Platelet Volume 10.3 fL Neutrophils (%) (Auto) 86.8 % Lymphocytes (%) (Auto) 8.4 % Monocytes (%) (Auto) 4.0 % Eosinophils (%) (Auto) 0.3 % Basophils (%) (Auto) 0.0 % Neutrophils # (Auto) 3.22 K/uL Lymphocytes # (Auto) 0.31 K/uL Monocytes # (Auto) 0.15 K/uL Eosinophils # (Auto) 0.01 K/uL Basophils # (Auto) 0.00 K/uL RDW Standard Deviation 42.9 fL RDW Coefficient of Variation 14.4 % Immature Granulocyte % (Auto) 0.5 % Immature Granulocyte # (Auto) 0.02 K/uL Prothrombin Time 11.1 SECONDS Prothromb Time International Ratio 1.0 Activated Partial Thromboplast Time 27.4 SECONDS Partial Thromboplastin Ratio 1.1 Sodium Level 139 mmol/L Potassium Level 4.0 mmol/L Chloride Level 101 mmol/L Carbon Dioxide Level 25 mmol/L Anion Gap 13.0 mmol/L Blood Urea Nitrogen 15 mg/dl Creatinine 0.63 mg/dl Est Creatinine Clear Calc Drug Dose 113.8 ml/min Estimated GFR () 124.1 Estimated GFR (Non- 107.1 BUN/Creatinine Ratio 24.2 Random Glucose 136 mg/dl Calcium Level 9.1 mg/dl Total Bilirubin 0.9 mg/dl Aspartate Amino Transf (AST/SGOT) 14 U/L Alanine Aminotransferase (ALT/SGPT) 23 U/L Alkaline Phosphatase 88 U/L Total Protein 7.0 gm/dl Albumin 2.9 gm/dl Globulin 4.1 gm/dl Albumin/Globulin Ratio 0.7 Lipase 54 U/L Bedside Troponin I < 0.030 ng/ml Bedside Lactic Acid Venous 1.76 mmol/L CT scan revealed showed pneumoperitoneum and some fluid in the pelvis. Assessment & Plan 62-year-old male with known esophageal cancer currently on chemotherapy, now with spontaneous perforation. He had a brief episode of hypotension that is resolved with an additional reader saline and switching from morphine to fentanyl for his pain medications. On my exam he is alert, mentating well, in pain and some mild peritonitis, tachycardic but with a normal blood pressure. He is in need of urgent surgical intervention, however I believe he is better served at a tertiary Medical Center due to his cancer and chemotherapy. At this point he appears stable for transport by ground, though air would be preferable. Air transport is not available due to weather conditions. The patient was transported by ambulance after this was discussed with the emergency department team.
--- NOTE | 2017-10-08 06:57 | EMERGENCY ROOM VISIT NOTE ---
History First contact with patient: 00:53 Chief Complaint: ABDOMINAL PAIN Stated Complaint: SEVERE ABD PAIN Nursing Triage Summary: Pt woke up 1-1/2 hours prior to arriving at ED with severe abdominal pain. Pt is a poor historian as to quality, exact location, etc due to pain. Actively on chemotherapy for esophageal CA. Pt has some tenderness, denies other complaints at this time. History of Present Illness The patient is a 62 year old male who presents to the Emergency Room with complaints of severe acute onset abdominal pain that woke him from sleep approximately 90 minutes ago at 11pm. The patient is a difficult historian, and is only stating that he is in severe pain. He has difficulty identifying the location of the pain. The patient is accompanied by his sister who provides much of the history. Evidently the patient has a history of esophageal cancer that was identified roughly 2 months ago after the patient had been losing weight. The patient is currently under the care of local oncology and is undergoing chemotherapy therapy and radiation. His last treatment was 3 days ago, and was evidently his fifth of 6 treatments. He is unsure of his medication for this. The patient evidently will be undergoing surgical intervention at [facility] after treatment locally. The patient himself has not had fever or chills. He was feeling well throughout the day yesterday. He rates his pain a 10/10. He does take aspirin and Plavix. He has fentanyl at home but this is not helping his discomfort. He has never had pain like this before. Review of Systems More than 10 systems were reviewed and otherwise negative with the exception of history of present illness. Past Medical/Surgical History Esophageal cancer Social History Smoking Status: Current Every Day Smoker Current/Historical Medications Scheduled Aspirin (Aspirin Ec), 81 MG PO QAM Atenolol (Tenormin), 50 MG PO QAM Clopidogrel (Plavix), 75 MG PO QAM Fentanyl (Duragesic), 12 MCG TD [id number] Hctz/Losartan (Hyzaar 25MG/100MG), 1 TAB PO QAM Isosorbide Mononitrate (Isosorbide Mononitrate ER), 2 TABS PO QAM Omeprazole (Omeprazole), 1 TAB PO QAM Rosuvastatin Calcium (Crestor), 5 MG PO QAM Scheduled PRN Nitroglycerin (Nitrostat), 0.4 MG UT UD PRN for Chest Pain Ondansetron Hcl (Zofran), 8 MG PO Q8 PRN for Nausea Allergies Coded Allergies: No Known Allergies (Verified , 08/09/17) Physical Exam Vital Signs Date Time Temp Pulse Resp B/P (MAP) Pulse Ox O2 Delivery O2 Flow Rate FiO2 10/08/17 05:51 122 23 95 10/08/17 05:46 113/65 10/08/17 05:41 122/75 10/08/17 05:36 120 29 95 10/08/17 05:31 128/73 10/08/17 05:21 115 33 96 10/08/17 05:16 116/75 10/08/17 05:12 112 10/08/17 05:08 132/87 10/08/17 05:06 115 95 10/08/17 05:01 98/68 10/08/17 04:51 123 36 96 10/08/17 04:46 105/63 10/08/17 04:36 130 32 96 10/08/17 04:34 36.6 10/08/17 04:31 108/67 10/08/17 04:21 132 29 94 10/08/17 04:16 110/70 10/08/17 04:06 131 25 94 Nasal Cannula 2.0 10/08/17 04:01 98/68 10/08/17 04:00 95 Nasal Cannula 2.0 10/08/17 03:51 123 19 91 10/08/17 03:46 88/54 10/08/17 03:38 125 22 93 10/08/17 03:31 111/76 10/08/17 03:23 119 27 94 10/08/17 03:18 98/57 10/08/17 03:16 94/58 10/08/17 03:11 119/47 10/08/17 03:08 117 23 89 10/08/17 03:01 88/69 10/08/17 02:53 123 28 92 10/08/17 02:48 117 24 92 10/08/17 02:46 104/56 10/08/17 02:45 83/69 10/08/17 02:36 95/55 10/08/17 02:33 118 22 90 10/08/17 02:31 88/58 10/08/17 02:18 114 23 91 10/08/17 02:03 109 26 94 10/08/17 02:01 105/73 10/08/17 01:43 103 27 10/08/17 01:31 149/81 10/08/17 01:28 94 22 95 10/08/17 01:16 99 10/08/17 01:13 98 19 97 Room Air 10/08/17 01:10 169/106 10/08/17 00:46 36.4 100 20 137/83 98 Room Air Physical Exam VITALS: Vitals are noted on the nurse's note and reviewed by myself. Vital signs as above GENERAL: White male who appears in severe discomfort in his emergency Department bed. He is laying on his left side guarding his abdomen with both of his hands. HEART: Tachycardic rate and regular rhythm LUNGS: Clear to auscultation bilaterally without wheezes, rales or rhonchi. No retractions or accessory muscle use. ABDOMEN: Diffuse abdominal tenderness palpation. Patient is guarding in all quadrants. Abdomen is soft. Bowel sounds 4. NEURO: Patient was alert and oriented to person place and time. Medical Decision & Procedures ER Provider Diagnostic Interpretation: Preliminary Findings Only See Final Report For Complete Findings CT ABDOMEN & PELVIS With Contrast: Moderate amount of intraperitoneal free air in the upper abdomen, suggesting bowel perforation. Suspected site of perforation in the gastric cardia with gas extending through the expected location of the gastric wall (3/58). Moderate amount of ascites. Wall thickening of the GE junction/proximal stomach in a patient with history of gastric cancer. Colonic diverticulosis without definite evidence of diverticulitis. Gallbladder is surgically absent. Fusiform abdominal aortic aneurysm, 3.2 cm in diameter. Several small clustered pulmonary nodules in the left lower lobe, likely infectious or inflammatory etiology. Prostate is enlarged. Laboratory Results 10/08/17 01:00 Red Blood Count 5.41, Mean Corpuscular Volume 85.8, Mean Corpuscular Hemoglobin 31.4, Mean Corpuscular Hemoglobin Concent 36.6, Mean Platelet Volume 10.3, Neutrophils (%) (Auto) 86.8, Lymphocytes (%) (Auto) 8.4, Monocytes (%) (Auto) 4.0, Eosinophils (%) (Auto) 0.3, Basophils (%) (Auto) 0.0, Neutrophils # (Auto) 3.22, Lymphocytes # (Auto) 0.31, Monocytes # (Auto) 0.15, Eosinophils # (Auto) 0.01, Basophils # (Auto) 0.00 10/08/17 01:00 Test 10/08/17 01:00 10/08/17 01:06 10/08/17 02:33 White Blood Count 3.71 K/uL (4.8-10.8) Red Blood Count 5.41 M/uL (4.7-6.1) Hemoglobin 17.0 g/dL (14.0-18.0) Hematocrit 46.4 % (42-52) Mean Corpuscular Volume 85.8 fL (80-100) Mean Corpuscular Hemoglobin 31.4 pg (25-34) Mean Corpuscular Hemoglobin Concent 36.6 g/dl (32-36) Platelet Count 161 K/uL (130-400) Mean Platelet Volume 10.3 fL (7.4-10.4) Neutrophils (%) (Auto) 86.8 % Lymphocytes (%) (Auto) 8.4 % Monocytes (%) (Auto) 4.0 % Eosinophils (%) (Auto) 0.3 % Basophils (%) (Auto) 0.0 % Neutrophils # (Auto) 3.22 K/uL (1.4-6.5) Lymphocytes # (Auto) 0.31 K/uL (1.2-3.4) Monocytes # (Auto) 0.15 K/uL (0.11-0.59) Eosinophils # (Auto) 0.01 K/uL (0-0.5) Basophils # (Auto) 0.00 K/uL (0-0.2) RDW Standard Deviation 42.9 fL (36.4-46.3) RDW Coefficient of Variation 14.4 % (11.5-14.5) Immature Granulocyte % (Auto) 0.5 % Immature Granulocyte # (Auto) 0.02 K/uL (0.00-0.02) Prothrombin Time 11.1 SECONDS (9.0-12.0) Prothromb Time International Ratio 1.0 (0.9-1.1) Activated Partial Thromboplast Time 27.4 SECONDS (21.0-31.0) Partial Thromboplastin Ratio 1.1 Anion Gap 13.0 mmol/L (3-11) Est Creatinine Clear Calc Drug Dose 113.8 ml/min Estimated GFR () 124.1 Estimated GFR (Non- 107.1 BUN/Creatinine Ratio 24.2 (10-20) Calcium Level 9.1 mg/dl (8.5-10.1) Total Bilirubin 0.9 mg/dl (0.2-1) Aspartate Amino Transf (AST/SGOT) 14 U/L (15-37) Alanine Aminotransferase (ALT/SGPT) 23 U/L (12-78) Alkaline Phosphatase 88 U/L (45-117) Total Protein 7.0 gm/dl (6.4-8.2) Albumin 2.9 gm/dl (3.4-5.0) Globulin 4.1 gm/dl (2.5-4.0) Albumin/Globulin Ratio 0.7 (0.9-2) Lipase 54 U/L (73-393) Bedside Troponin I < 0.030 ng/ml (0-0.045) Bedside Lactic Acid Venous 1.76 mmol/L (0.90-1.70) Medications Administered Medications (Trade) Dose Ordered Sig/Zahira Route Start Time Stop Time Status Last Admin Dose Admin Fentanyl Citrate (Fentanyl Inj) 75 mcg NOW ONCE IV 10/08/17 01:00 10/08/17 01:01 DC 10/08/17 01:13 75 MCG Pantoprazole Sodium 40 mg/ Syringe 10 ml @ 5 mls/min NOW ONCE IV 10/08/17 01:00 10/08/17 01:01 DC 10/08/17 01:31 5 MLS/MIN Ondansetron HCl (Zofran Inj) 4 mg NOW STAT IV 10/08/17 00:57 10/08/17 01:00 DC 10/08/17 01:16 4 MG Sodium Chloride 1,000 ml @ 999 mls/hr Q1H1M ONCE IV 10/08/17 01:00 10/08/17 02:00 DC 10/08/17 01:12 999 MLS/HR Morphine Sulfate (MoRPHine SULFATE INJ) 4 mg NOW ONCE IV 10/08/17 02:00 10/08/17 02:01 DC 10/08/17 02:02 4 MG Morphine Sulfate (MoRPHine SULFATE INJ) 4 mg Q30M PRN IV 10/08/17 02:15 10/22/17 02:14 10/08/17 04:07 4 MG Daptomycin 390 mg/ Syringe 7.8 ml @ 3.9 mls/min TODAY@0215 IV 10/08/17 02:15 10/08/17 04:00 DC 10/08/17 03:35 3.9 MLS/MIN Cefepime HCl 2000 mg/Syringe 20 ml @ 5 mls/min TODAY@0215 IV 10/08/17 02:15 10/08/17 04:00 DC 10/08/17 03:40 5 MLS/MIN Sodium Chloride 1,000 ml @ 999 mls/hr Q1H1M ONCE IV 10/08/17 03:00 10/08/17 04:00 DC 10/08/17 02:35 999 MLS/HR Fentanyl Citrate (Fentanyl Inj) 50 mcg NOW ONCE IV 10/08/17 05:00 10/08/17 05:01 DC 10/08/17 05:09 50 MCG Sodium Chloride 1,000 ml @ 999 mls/hr Q1H1M ONCE IV 10/08/17 05:00 10/08/17 06:00 DC 10/08/17 04:45 999 MLS/HR ED Course Physical exam and history were performed. Nursing notes, EMR, and Medication List were personally reviewed. Patient appears to have severe acute onset abdominal pain with known history of gastric cancer. He appears exquisitely uncomfortable on examination and was seen immediately upon his arrival to the department. IV access was established and labs were obtained. I-STAT was obtained. CT scan was ordered. The patient was medicated with IV fentanyl and IV Zofran. His pain control is transitioned to morphine. The case was discussed with my attending physician, Dr. Arambula, who also independently evaluated the patient and remained involved in patient care decision-making. The patient's blood work is as above and was reviewed. He does not have a significantly elevated white blood cell count, anemia, bandemia, or gross electrolyte imbalance. Transaminases are nondiagnostic. His lactic acid is elevated, and the patient is felt to be septic. Blood cultures are pending. The patient required additional pain medication and was given several doses of IV morphine and additional fluids. His CT scan was reviewed by myself and my attending, and was concerning for a perforation as there does appear to be free air. The patient was given cefepime and daptomycin here in the department. Radiology report does confirm perforation as described above. The case was discussed with the on-call surgeon, Dr. Grissom. There is concern as the patient is with a perforation that appears to be in the area of his known mass. Evidently the patient has some level of care through surgical oncology at [facility] in [place], and Dr Grissom felt this may be the most appropriate course for the patient. I did contact [facility] and spoke with Dr. García, who accepts the patient in transfer. Appropriate paperwork and consents were gathered. The patient had several episodes of hypotension while we were awaiting transport , and there was concern for his stability during transfer. At this time we are unable to fly because of inclement weather. I did speak with Dr. Grissom again , who agreed to evaluate the patient here in the department. Utilizing shared decision making between myself, Dr. Grissom, Dr. Arambula, and the patient, we feel the patient is stable for transport. This was supported by the patient's vital signs improving with additional fluids and monitoring. We also transitioned back to fentanyl for his pain control, as there may have been an element of hypertension secondary to the morphine. The patient was transported without further incident. The chart was completed utilizing [employer] Speech Voice Recognition Software. Grammatical errors, random word insertions, pronoun errors, and incomplete sentences are an occasional consequence of this system due to software limitations, ambient noise, and hardware issues. Any formal questions or concerns about the content, text, or information contained within the body of this dictation should be directly addressed to the provider for clarification. . Medical Decision Differential diagnosis: Etiologies such as cancer, perforation, appendicitis, diverticulitis, PUD, biliary pathology, UTI, pancreatitis, obstruction, mesenteric ischemia, aortic pathology, infections, inflammatory bowel disease, renal colic, as well as others were entertained. Impression Primary Impression: Perforated bowel Additional Impressions: Esophageal cancer Sepsis Critical Care I have personally spent greater than 60 minutes of critical care time in the direct management of this patient. This includes bedside care, interpretation of diagnostic studies, and testing, discussion with consultants, patient, and family members, and other required patient management activities. This 60 minutes is in excess of all separately billable procedures. Departure Information Referrals Juan Mckeon PA-C (PCP) Patient Instructions My [facility] Problem Qualifiers
--- NOTE | 2017-10-08 07:32 | DIAGNOSTIC IMAGING REPORT ---
ABD/PELVIS IV CONTRAST ONLY CLINICAL HISTORY: 62 years-old Male presenting with severe abd pain. hx gastric cancer. TECHNIQUE: Multidetector CT of the abdomen and pelvis was performed after the administration of intravenous contrast. IV contrast: 92 mL of Optiray 320. A dose lowering technique was used consistent with the principles of ALARA (as low as reasonably achievable). COMPARISON: None. CT DOSE (mGy.cm): The estimated cumulative dose is 291.75 mGy.cm. FINDINGS: Training Coordinator topogram: Cholecystectomy clips. Lung bases: Centrilobular groundglass nodularity in the lateral basal left lower lobe. Normal heart size. No pericardial or pleural effusion. Liver: Normal morphology. No focal suspicious lesion. Patent hepatic vasculature. Biliary: No intrahepatic or extrahepatic biliary ductal dilatation. Gallbladder surgically absent. Pancreas: Mild parenchymal atrophy. Spleen: Normal. Adrenal glands: Normal. Kidneys and ureters: Normal. No hydronephrosis. Bladder: Incompletely evaluated secondary to underdistention. Pelvic organs: Prostate enlargement likely secondary to benign prostatic hyperplasia. Bowel: Diverticulosis of the descending and sigmoid colon. Mild stool burden throughout normal caliber colon. Appendix not clearly visualized. Mild diffuse small bowel wall thickening suggested. No bowel obstruction. Focal discontinuity suggested along the right lateral aspect of the gastric cardia (series 3 image 56). Peritoneal cavity: Numerous foci of pneumoperitoneum, the largest collection in the anterior upper abdomen. Focal gas appears to dissect through the wall of the gastric cardia, which suspected site of perforation. Diffuse infiltration of the omentum. Mild diffuse peritoneal thickening. Small amount of pelvic ascites. Lymph nodes: No enlarged lymph nodes in the abdomen or pelvis. Vasculature: Atherosclerosis of the abdominal aorta, which demonstrates prominent mural thrombus with aneurysmal dilatation in the infrarenal portion, measuring up to 2.9 cm in maximal transverse dimension. Atherosclerosis of the bilateral iliac arteries mildly narrows the lumina. IVC patent. Abdominal wall: Mild body wall edema. Musculoskeletal: Degenerative changes of the spine. IMPRESSION: 1. Free intraperitoneal gas with findings highly suspicious for focal perforation along the right aspect of the gastric cardia (series 3 image 56). Omental infiltration, peritoneal thickening, mild diffuse small bowel wall thickening, and small ascites could be reactive. 2. 2.9 cm infrarenal abdominal aortic aneurysm. 3. Centrilobular groundglass nodularity in the lateral basal left lower lobe concerning for infectious bronchiolitis. The report will be called/faxed according to standard departmental protocol. Electronically signed by: Colin Deutsch M.D. 10/08/2017 7:30 AM Dictated Date/Time: 10/08/2017 7:21 AM
--- NOTE | 2017-10-08 07:38 | EMERGENCY ROOM VISIT NOTE ---
ED Visit Note First contact with patient: 00:53 I saw this patient in conjunction with Renny Garcia PA-C. I followed along closely as this patient had abnormal vital signs. I discussed the case at length with the patient and his along with Dr. Grissom. Patient's blood pressure responded nicely to 3 L of normal saline solution and was hemodynamically stable for transfer.
== END 2017-10-08 05:55 | disposition short-term general hospital (02) ==
LOC: C.EDB 00:44
DX: K63.1 Perforation of intestine (nontraumatic) (principal); C15.9 Malignant neoplasm of esophagus, unspecified; A41.9 Sepsis, unspecified organism; I10 Essential (primary) hypertension; F17.200 Nicotine dependence, unspecified, uncomplicated; I25.2 Old myocardial infarction; Z90.49 Acquired absence of other specified parts of digestive tract; Z79.02 Long term (current) use of antithrombotics/antiplatelets; Z79.82 Long term (current) use of aspirin; Z79.899 Other long term (current) drug therapy

== ENCOUNTER → 2017-10-18 | Outpatient (CLI) | payer OTHER ==
[~2017-10-18] MED LIST changes: +ENOX40IN SQ; +PANT1INJ2 IV
[2017-10-18 12:54] LABS: BLOOD UREA NITROGEN 18 mg/dl (7-18); CALCIUM 7.7 mg/dl (8.5-10.1); CARBON DIOXIDE 25 mmol/L (21-32); CREATININE 0.33 mg/dl (0.60-1.40); GLUCOSE 95 mg/dl (70-99); PHOSPHORUS 2.9 mg/dl (2.5-4.9); POTASSIUM 3.3 mmol/L (3.5-5.1); SODIUM 138 mmol/L (136-145)
== END | disposition home or self-care (01) ==
LOC: C.LABSPEC 12:52
DX: E43 Unspecified severe protein-calorie malnutrition (principal); C15.9 Malignant neoplasm of esophagus, unspecified

== ENCOUNTER → 2017-10-22 | Outpatient (CLI) | payer OTHER ==
[2017-10-22 17:57] LABS: ALBUMIN 1.5 gm/dl (3.4-5.0); ALT/SGPT 32 U/L (12-78); AST/SGOT 24 U/L (15-37); BLOOD UREA NITROGEN 27 mg/dl (7-18); CALCIUM 7.6 mg/dl (8.5-10.1); CARBON DIOXIDE 28 mmol/L (21-32); CREATININE 0.42 mg/dl (0.60-1.40); GLUCOSE 98 mg/dl (70-99); PHOSPHORUS 2.5 mg/dl (2.5-4.9); POTASSIUM 3.3 mmol/L (3.5-5.1); SODIUM 138 mmol/L (136-145)
[2017-10-22 18:00] LABS: ALKALINE PHOSPHATASE 88 U/L (45-117); TOTAL PROTEIN 6.5 gm/dl (6.4-8.2)
== END | disposition home or self-care (01) ==
LOC: C.LABSPEC 11:57
PROVIDERS: ATTEND Student in an Organized Health Care Education/Training Program
DX: E43 Unspecified severe protein-calorie malnutrition (principal); C15.9 Malignant neoplasm of esophagus, unspecified

== ENCOUNTER → 2017-10-25 | Outpatient (CLI) | payer OTHER ==
[2017-10-25 13:03] LABS: BLOOD UREA NITROGEN 22 mg/dl (7-18); CALCIUM 7.8 mg/dl (8.5-10.1); CARBON DIOXIDE 25 mmol/L (21-32); CREATININE 0.32 mg/dl (0.60-1.40); GLUCOSE 104 mg/dl (70-99); POTASSIUM 4.1 mmol/L (3.5-5.1); SODIUM 139 mmol/L (136-145)
== END | disposition home or self-care (01) ==
LOC: C.LABSPEC 10:30
PROVIDERS: ATTEND Internal Medicine
DX: C15.9 Malignant neoplasm of esophagus, unspecified (principal)

== ENCOUNTER 2017-10-26 02:55 | Inpatient (IN) | payer OTHER ==
[~2017-10-26] VITALS: Ht 177.8 cm; Wt 61.6 kg
[~2017-10-26 02:55] MED LIST changes: -ENOX40IN SQ; -PANT1INJ2 IV
[2017-10-26 03:30] LABS: ISTAT CREATININE 0.5 mg/dl (0.6-1.3); ISTAT HEMOGLOBIN 13.3 g/dl (14.0-18.0); ISTAT IONIZED CALCIUM 0.94 mmol/l (1.12-1.32)
[2017-10-26 03:42] LABS: HEMATOCRIT 29.6 % (42-52); MEAN CELL VOLUME 93.4 fL (80-100); MEAN CORPUSCULAR HEMOGLOBIN 31.2 pg (25-34); MEAN CORPUSCULAR HGB CONC 33.4 g/dl (32-36); MEAN PLATELET VOLUME 11.9 fL (7.4-10.4); PLATELET COUNT 297 K/uL (130-400); RED BLOOD COUNT 3.17 M/uL (4.7-6.1); WHITE BLOOD COUNT 8.96 K/uL (4.8-10.8)
[2017-10-26 03:55] LABS: INR 1.3 (0.9-1.1); PARTIAL THROMBOPLASTIN RATIO 1.1; PROTHROMBIN TIME (PATIENT) 14.6 SECONDS (9.0-12.0)
[2017-10-26 04:00] LABS: BUN/CREATININE RATIO 45.7 (10-20); CALCIUM 7.5 mg/dl (8.5-10.1); CREATININE 0.54 mg/dl (0.60-1.40); POTASSIUM 4.4 mmol/L (3.5-5.1)
[2017-10-26 04:16] LABS: CKMB/CK RATIO 8.8 (0-3.0)
[2017-10-26 04:19] LABS: ANISOCYTOSIS PRESENT; BASO % 0.1 %; BASO ABS # 0.01 K/uL (0-0.2); COMPLETE YES; DOHLE BODIES 2+; IG% 1.6 %; LYMPH % 11.8 %; LYMPH ABS # 1.06 K/uL (1.2-3.4); MONO % 8.6 %; NEUT % 77.9 %; POLYCHROMASIA 1+; TOXIC GRANULATION 1+; VACUOLIZATION OCCASIONAL
--- NOTE | 2017-10-26 04:26 | EMERGENCY ROOM VISIT NOTE ---
History Report prepared by Sybil: Stephanie Vann Under the Supervision of: Dr. Bree Arambula D.O. First contact with patient: 03:01 Chief Complaint: CHEST PAIN Stated Complaint: CHEST PAIN/ SHORTNESS OF BREATH History of Present Illness The patient is a 62 year old male who presents to the Emergency Room with complaints of resolved chest pain starting around 0200. The patient presents to the ED by EMS. He woke up at 0200 feeling nauseous. He asked to be disconnected from his TPN. His heart rate was found to be fast. He was given 2 nitro by his sister which helped. He had a 3rd nitro after which he started shaking. He was awake and alert during the shaking. The sister called EMS at this time. He currently does not have chest pain. He is SOB. He has been complaining of abdominal pain for the past couple of days. The patient has a history of [place]. He does not have any stents in his heart. She reports the bottom part of his heart is damaged. He currently has esophageal cancer. He was told he had a perforated tumor earlier this week in his abdomen. He will not have any more chemo or radiation treatment. He denies any history of irregular heartbeat. He denies any alcohol use. Source of History: patient, family Onset: 0200 Position: chest Quality: other (pain) Timing: resolved Modifying Factors (Relieving): other (nitro) Associated Symptoms: + SOB, + nausea, + abdominal pain Review of Systems See HPI for pertinent positives & negatives. A total of 10 systems reviewed and were otherwise negative. Past Medical & Surgical Medical Problems: (1) Heart disease (2) Hypertension (3) Pelvic abscess Family History Cancer Diabetes mellitus Heart disease Hypertension Social History Smoking Status: Current Every Day Smoker Marital Status: single Occupation Status: employed Current/Historical Medications Scheduled Enoxaparin (Lovenox), 40 MG SQ DAILY Pantoprazole Sodium (Protonix), 40 MG IV DAILY Allergies Coded Allergies: No Known Allergies (Verified , 08/09/17) Physical Exam Vital Signs Date Time Temp Pulse Resp B/P (MAP) Pulse Ox O2 Delivery O2 Flow Rate FiO2 10/26/17 10:57 94 18 106/73 97 Nasal Cannula 4.0 10/26/17 09:00 99 Nasal Cannula 4.0 10/26/17 08:57 98 20 106/65 98 Nasal Cannula 5.0 10/26/17 07:44 100 20 119/67 98 Nasal Cannula 5.0 10/26/17 07:00 107 22 117/70 97 10/26/17 06:45 108 22 119/67 96 10/26/17 06:30 108 16 117/70 94 10/26/17 06:15 122 25 94/57 97 10/26/17 06:00 106 23 109/69 97 10/26/17 05:38 110 24 112/61 95 6.0 10/26/17 05:15 99 97 6.0 10/26/17 05:00 120 26 110/69 95 10/26/17 04:45 120 24 100/61 95 10/26/17 04:30 122 29 103/64 94 10/26/17 04:15 127 24 105/65 92 10/26/17 04:00 123 23 95/60 97 10/26/17 03:45 131 26 92/60 95 10/26/17 03:30 147 39 107/66 93 10/26/17 03:18 150 10/26/17 03:16 134 35 102/69 93 4.0 10/26/17 03:12 144 29 89/67 89 10/26/17 03:06 36.6 149 32 110/69 91 Nasal Cannula 4.0 10/26/17 03:06 82 Room Air 10/26/17 03:05 91 Nasal Cannula 4.0 10/26/17 03:05 145 32 110/69 89 10/26/17 03:00 150 29 81 Physical Exam General: Cachectic appearing male who is short of breath HEENT: Head - normocephalic and atraumatic Pupils are equal, round, and reactive to light. Extraocular eye muscles are intact, and sclera are anicteric. Nose - moist nasal mucosa without discharge. Mouth - moist buccal mucosa. Oropharynx is nonerythematous and there is no tonsillar exudate or edema noted. Neck: Supple; no JVD, nuchal rigidity, cervical lymphadenopathy. Heart: Tachycardic rate and regular rhythm. There is a normal S1 and S2 with no murmurs, clicks, or gallops appreciated. Lungs: Diminished breath sounds in all lung porter. Abdomen: Soft,slightly tender, nondistended, with hypoactive bowel sounds. There is a G-tube in place with 2 JENNY drains in the intra-abdominal cavity. There are no palpable pulsatile masses or hepatosplenomegaly. There is no guarding, rigidity, or rebound noted. Extremities: No evidence of cyanosis, clubbing, or edema. There are easily palpable peripheral pulses. Skin: Pale. Warm and dry with good turgor and no rashes. Medical Decision & Procedures ER Provider Diagnostic Interpretation: X-ray results as stated below per interpretation by me: Chest X-ray: No pleural effusion. No cardiomegaly. No pulmonary consolidation. Laboratory Results 10/26/17 03:05 Red Blood Count 3.17, Mean Corpuscular Volume 93.4, Mean Corpuscular Hemoglobin 31.2, Mean Corpuscular Hemoglobin Concent 33.4, Mean Platelet Volume 11.9, Neutrophils (%) (Auto) 77.9, Lymphocytes (%) (Auto) 11.8, Monocytes (%) (Auto) 8.6, Eosinophils (%) (Auto) 0.0, Basophils (%) (Auto) 0.1, Neutrophils # (Auto) 6.98, Lymphocytes # (Auto) 1.06, Monocytes # (Auto) 0.77, Eosinophils # (Auto) 0.00, Basophils # (Auto) 0.01 10/26/17 03:05 Test 10/26/17 03:05 10/26/17 03:12 10/26/17 03:17 10/26/17 04:55 White Blood Count 8.96 K/uL (4.8-10.8) Red Blood Count 3.17 M/uL (4.7-6.1) Hemoglobin 9.9 g/dL (14.0-18.0) Hematocrit 29.6 % (42-52) Mean Corpuscular Volume 93.4 fL (80-100) Mean Corpuscular Hemoglobin 31.2 pg (25-34) Mean Corpuscular Hemoglobin Concent 33.4 g/dl (32-36) Platelet Count 297 K/uL (130-400) Mean Platelet Volume 11.9 fL (7.4-10.4) Neutrophils (%) (Auto) 77.9 % Lymphocytes (%) (Auto) 11.8 % Monocytes (%) (Auto) 8.6 % Eosinophils (%) (Auto) 0.0 % Basophils (%) (Auto) 0.1 % Neutrophils # (Auto) 6.98 K/uL (1.4-6.5) Lymphocytes # (Auto) 1.06 K/uL (1.2-3.4) Monocytes # (Auto) 0.77 K/uL (0.11-0.59) Eosinophils # (Auto) 0.00 K/uL (0-0.5) Basophils # (Auto) 0.01 K/uL (0-0.2) RDW Standard Deviation 57.5 fL (36.4-46.3) RDW Coefficient of Variation 18.3 % (11.5-14.5) Immature Granulocyte % (Auto) 1.6 % Immature Granulocyte # (Auto) 0.14 K/uL (0.00-0.02) Nucleated RBC Absolute Count (auto) 0.07 K/uL (0-0) Nucleated Red Blood Cells % 0.8 % Toxic Granulation 1+ Toxic Vacuolation OCCASIONAL Dohle Bodies 2+ Polychromasia 1+ Anisocytosis PRESENT Prothrombin Time 14.6 SECONDS (9.0-12.0) Prothromb Time International Ratio 1.3 (0.9-1.1) Activated Partial Thromboplast Time 29.4 SECONDS (21.0-31.0) Partial Thromboplastin Ratio 1.1 Est Creatinine Clear Calc Drug Dose 128.2 ml/min Estimated GFR () 132.3 Estimated GFR (Non- 114.1 BUN/Creatinine Ratio 45.7 (10-20) Calcium Level 7.5 mg/dl (8.5-10.1) Total Bilirubin 1.1 mg/dl (0.2-1) Direct Bilirubin 0.7 mg/dl (0-0.2) Aspartate Amino Transf (AST/SGOT) 24 U/L (15-37) Alanine Aminotransferase (ALT/SGPT) 35 U/L (12-78) Alkaline Phosphatase 113 U/L (45-117) Total Creatine Kinase 17 U/L (39-308) Creatine Kinase MB 1.5 ng/ml (0.5-3.6) Creatine Kinase MB Ratio 8.8 (0-3.0) Total Protein 6.8 gm/dl (6.4-8.2) Albumin 1.5 gm/dl (3.4-5.0) Bedside Troponin I 0.260 ng/ml (0-0.045) Bedside Hemoglobin 13.3 g/dl (14.0-18.0) Bedside Hematocrit 39 % (42-52) Bedside Sodium 138 mEq/L (135-144) Bedside Potassium 4.5 mEq/L (3.3-5.0) Bedside Chloride 106 mEq/L (101-112) Bedside Total CO2 22 mEq/l (24-31) Anion Gap 16.0 mmol/L (16-25) Bedside Blood Urea Nitrogen 24 mg/dl (7-18) Bedside Creatinine 0.5 mg/dl (0.6-1.3) Bedside Glucose (other) 132 mg/dl (70-99) Bedside Ionized Calcium (Lucy) 0.94 mmol/l (1.12-1.32) Lactic Acid Level 1.3 mmol/L (0.4-2.0) Magnesium Level 1.6 mg/dl (1.8-2.4) Troponin I 0.552 ng/ml (0-0.045) Lipase 32 U/L (73-393) Thyroid Stimulating Hormone (TSH) 1.050 uIu/ml (0.300-4.500) Test 10/26/17 05:09 Arterial Blood pH 7.49 (7.35-7.45) Arterial Blood Partial Pressure CO2 31 mmHg (35-46) Arterial Blood Partial Pressure O2 83 mm/Hg (80-95) Arterial Blood HCO3 23 mmol/L (19-24) Arterial Blood Oxygen Saturation 92.1 % (90-95) Arterial Blood Base Excess 0.2 mEq/L (-9-1.8) Arterial Blood Gas Delivery 6L Dmitriy Test POS (POS) Laboratory results per my review. Medications Administered Medications (Trade) Dose Ordered Sig/Zahira Route Start Time Stop Time Status Last Admin Dose Admin Sodium Chloride 250 ml @ 0 mls/hr Q0M ONCE IV 10/26/17 04:45 10/26/17 04:46 DC 10/26/17 05:05 0 MLS/HR Metronidazole (Flagyl / Nss) 500 mg NOW STAT IV 10/26/17 06:39 10/26/17 06:47 DC 10/26/17 07:54 500 MG Magnesium Sulfate (Magnesium Sulfate) 1 gm STK-MED ONCE .ROUTE 10/26/17 06:42 10/26/17 06:43 DC 10/26/17 06:45 1 GM Cefepime HCl 2000 mg/Syringe 20 ml @ 5 mls/min NOW STAT IV 10/26/17 06:54 10/26/17 06:57 DC 10/26/17 07:54 5 MLS/MIN Morphine Sulfate (MoRPHine SULFATE INJ) 2 mg Q3H PRN IV 10/26/17 07:00 11/09/17 06:59 10/26/17 16:02 2 MG Sodium Chloride 500 ml @ 500 mls/hr Q1H ONCE IV 10/26/17 07:00 10/26/17 08:38 DC 10/26/17 08:59 500 MLS/HR Sodium Chloride 1,000 ml @ 60 mls/hr [id number] ONCE IV 10/26/17 13:15 10/27/17 05:54 10/26/17 15:47 60 MLS/HR ECG Indication: chest pain Rate (beats per minute): 150 Rhythm: sinus tachycardia Findings: ST depression (Lateral, Anterior), ST elevation (Inferior, Posterior) ED Course 0307: The patient was evaluated in room A10. A complete history and physical examination were performed. Nursing notes and previous electronic medical records were reviewed. IV lock was established and labs were drawn as above. A twelve-lead EKG was obtained. A portal chest x-ray was obtained. The patient became slightly hypotensive. He was placed with his head down. Blood pressure rebounded nicely. 0405: I discussed the patient's lab results with him and his sister. We spent some time talking about his CODE STATUS. He requested to be a full code. His chest pain has resolved at this time. His blood pressure has come up above her 100. His heart rate is down in the low 100s. 0435: I reevaluated the patient. He is stable. Repeat EKG shows sinus tachycardia at a rate of 117 with PAC. Previous ischemic changes have improved. I discussed findings and results with him and his sister. They verbalized agreement of the treatment plan. I spoke with Dr. Rabago of the [facility]. The patient will be evaluated for further management and care. Medical Decision The patient is a 62 year old male who presents to the ED with chest pain. Differential diagnosis includes CHF, STEMI, acute coronary syndrome, costochondritis, GERD. Labs: Istat labs - hemoglobin 13.3, BUN 24, creatinine 0.5, glucose 132. WBC count 8.9, hemoglobin 9.9, BUN 24, creatinine 0.5, glucose 128, total bilirubin 1.1, direct 0.7, troponin 0.3, coags slightly elevated with an INR of 1.3. This is a 62-year-old male patient with a history of esophageal cancer and a perforated tumor who developed chest pain this evening. He is nitroglycerin at home which seemed to help the symptoms slightly. However, he continued to have some discomfort and his family called EMS. The patient also began to complain of some abdominal pain which seemed to improve slightly when he was here in the emergency department. The patient had EKG changes consistent with cardiac ischemia inferiorly and posteriorly. He does have a positive troponin. I discussed the case with the [facility] Hospitalist and they will evaluate for further management. Medication Reconcilliation Current Medication List: was personally reviewed by me Blood Pressure Screening Patient's blood pressure: Low blood pressure Consults Time Called: [phone] Consulting Physician[facility] Return[facility] Call: [phone] Discussed the patient's case. The patient will be evaluated for further management. Impression Primary Impression: NSTEMI (non-ST elevated myocardial infarction) Scribe Attestation The scribe's documentation has been prepared under my direction and personally reviewed by me in its entirety. I confirm that the note above accurately reflects all work, treatment, procedures, and medical decision making performed by me. Departure Information Dispostion Being Evaluated By Hospitalist Referrals No Doctor, Assigned (PCP) Patient Instructions My [facility]
[2017-10-26] MEDS ORDERED: SODIUM CHLORIDE 0.9% 250ML 250 ML IV ONE (04:45)
[2017-10-26] MEDS ORDERED: OPTIRAY 320 IV PRN (05:00)
[2017-10-26] MEDS ORDERED: PANT1INJ2 IV (05:04)
[2017-10-26] MEDS ORDERED: ENOX40IN SQ ×2 (05:06→05:23)
[2017-10-26 05:42] LABS: ARTERIAL BLD GAS O2 SATURATION 92.1 % (90-95); ARTERIAL BLOOD GAS BASE EXCESS 0.2 mEq/L (-9-1.8); ARTERIAL BLOOD GAS HCO3 23 mmol/L (19-24); ARTERIAL BLOOD GAS PO2 83 mm/Hg (80-95); ARTERIAL BLOOD GAS pH 7.49 (7.35-7.45)
[2017-10-26 05:43] LABS: ALLEN TEST POS (POS); O2 ADMINISTRATION 6L
[2017-10-26 06:12] LABS: MAGNESIUM 1.6 mg/dl (1.8-2.4); THYROID STIMULATING HORMONE 1.05 uIu/ml (0.300-4.500)
[2017-10-26] MEDS ORDERED: MAGNESIUM SULFATE 1GM / D5W 1 GM in PREMIXED IN D5W 100 ML IV ONE (06:30)
[2017-10-26] MEDS ORDERED: METRONIDAZOLE 500MG / 100ML NSS IV STA (06:39)
[2017-10-26] MEDS ORDERED: MAGNESIUM SULFATE 1GM / D5W 1 GM BAG ONE (06:42)
--- NOTE | 2017-10-26 06:46 | DIAGNOSTIC IMAGING REPORT ---
CHEST ONE VIEW PORTABLE HISTORY: 62 years-old Male cp acute atypical chest pain COMPARISON: CTA of the chest of same day TECHNIQUE: Portable AP view of the chest FINDINGS: Cardiac silhouette is within normal limits. Right-sided PICC is noted with distal tip in the region of the superior cavoatrial junction. No pneumothorax, pleural effusion, or overt pulmonary edema. Patchy subsegmental bibasilar opacities are noted. Bones of the chest are grossly intact. Cholecystectomy clips are noted. There are surgical drains projecting over the upper abdomen. Right-sided carotid stent graft is noted. IMPRESSION: Patchy subsegmental bibasilar opacities are better evaluated on CTA of the chest of same day. No lobar airspace consolidation. The above report was generated using voice recognition software. It may contain grammatical, syntax or spelling errors. Electronically signed by: Sigifredo Reynoso M.D. 10/26/2017 6:45 AM Dictated Date/Time: 10/26/2017 6:42 AM
--- NOTE | 2017-10-26 06:46 | DIAGNOSTIC IMAGING REPORT ---
(CHEST FOR PE) ANGIO WITH CT DOSE: HISTORY: Chest pain. Dyspnea. TECHNIQUE: Multiaxial CT images of the chest were performed following the intravenous administration of contrast to evaluate the pulmonary arteries. Maximal intensity projection images were also obtained. A dose lowering technique was utilized adhering to the principles of ALARA. COMPARISON STUDY: 10/08/2017 FINDINGS: Interval postoperative changes to the upper abdominal regions. Surgical drains are in position. Small amount of free intraperitoneal most likely postoperative. Mild upper abdominal ascites. Pulmonary arterial vasculature enhances appropriately. No significant filling defects. Mild peribronchial prominence. Moderate atherosclerotic change thoracic aorta with no evidence for aneurysm or dissection. Subtle basilar bronchitis degenerative change thoracic spine. IMPRESSION: 1. Study is negative for pulmonary embolus. 2. Peribronchial and interstitial prominence of the lower lungs bilaterally. 3. Postoperative changes upper abdomen. The above report was generated using voice recognition software. It may contain grammatical, syntax or spelling errors. Electronically signed by: Brian Larios M.D. 10/26/2017 6:45 AM Dictated Date/Time: 10/26/2017 6:42 AM
[2017-10-26] MEDS ORDERED: CEFEPIME IV 2,000 MG in DEXTROSE 5% 100ML 100 ML IV STA (06:48)
[2017-10-26] MEDS ORDERED: CEFEPIME IV 2,000 MG in SYRINGE 7.5 ML IV STA (06:54)
[2017-10-26] MEDS ORDERED: PROCHLORPERAZINE INJ 5 MG in SYRINGE 4 ML IV PRN (07:00)
[2017-10-26] MEDS ORDERED: SODIUM CHLORIDE 0.9% 500ML 500 ML IV ONE (07:00)
--- NOTE | 2017-10-26 07:19 | DIAGNOSTIC IMAGING REPORT ---
ABD/PELVIS IV CONTRAST ONLY CLINICAL HISTORY: 62 years-old Male presenting with severe abdominal pain, history of gastric cancer. TECHNIQUE: Multidetector CT of the abdomen and pelvis was performed after the administration of intravenous contrast. IV contrast: 92 mL of Optiray 320. A dose lowering technique was used consistent with the principles of ALARA (as low as reasonably achievable). COMPARISON: 10/08/2017. CT DOSE (mGy.cm): The estimated cumulative dose is 574.26 mGy.cm. FINDINGS: Floor Covering Installer topogram: Upper abdominal surgical drains in place. Lung bases: Tree-in-bud opacities primarily in the posterior basal segments of the bilateral lower lobes. Irregular nodular opacity measuring 9 mm in the lingula (series 6 image 22) disease. Segmental and subsegmental filling defects in the lower lobe bronchi consistent with debris or mucus plugging. Coronary artery calcification. Normal heart size. No pericardial or pleural effusion. Liver: Subcapsular fluid collection along the lateral and inferior right hepatic lobe exerting mass effect on the underlying parenchyma. This collection is limited in configuration and measures up to 3.9 x 1.0 cm in maximal axial dimensions. No hepatic lesion. Patent hepatic vasculature. Biliary: No intrahepatic or extrahepatic biliary ductal dilatation. Gallbladder surgically absent. Pancreas: Mild parenchymal atrophy. Spleen: Large subcapsular fluid collection along the lateral spleen, which measures up to 11.9 x 3.9 cm in maximal axial dimensions. Mass effect on the splenic parenchyma, which is otherwise normal. Adrenal glands: Nodular thickening of the left adrenal gland, nonspecific. Right adrenal gland normal. Kidneys and ureters: Normal. No hydronephrosis. Renal vascular calcification noted. Bladder: Mild circumferential bladder wall thickening, possibly indicating chronic bladder outlet obstruction. Pelvic organs: Prostate enlargement likely secondary to benign prostatic hyperplasia. Bowel: Diverticulosis of the sigmoid colon with wall thickening though no significant pericolonic fat stranding. This likely represents chronic diverticular disease. Normal appendix. No bowel obstruction. Mild small bowel wall thickening suggested diffusely. Mild wall thickening of the gastric antrum. Peritoneal cavity: 2 percutaneous [address] dra[address] in place, one in the right upper quadrant with minimal fluid along its course through the anterior abdominal wall musculature and terminating anteriorly in the epigastrium. The second drain has a left upper abdominal percutaneous entry site and terminates in the anterior right mid abdomen intimately associated with the course of the right-sided drain. Pneumoperitoneum evident in the upper abdomen likely postoperative given the presence of the surgical drains. A gastrostomy tube is appropriately positioned in the gastric body/antrum. In addition to the perihepatic and perisplenic subcapsular fluid collections, there are two rim-enhancing fluid collections in the pelvis: 1) the larger in the right posterior pelvis measuring 6.5 x 5.4 cm (series 6 image 377) abutting the pelvic small bowel and rectosigmoid junction and 2) the smaller in the anterior left pelvis measuring 3.9 x 1.6 cm (series 6 image 354) extending from the distal descending colon along the left paracolic gutter and abutting left superior pelvic small bowel and extending medially and inferiorly along the sigmoid colon. Lymph nodes: No enlarged lymph nodes in the abdomen or pelvis. Vasculature: Atherosclerosis of the abdominal aorta with slightly eccentric though fusiform aneurysmal dilatation of the infrarenal portion, which measures 3.3 x 2.5 cm in maximal transverse dimension. No aneurysmal dilatation of the iliac vessels. IVC patent. Abdominal wall: Mild body wall edema. No significant fluid collection. Musculoskeletal: Degenerative changes of the spine. IMPRESSION: 1. Postsurgical changes with pneumoperitoneum and [address] place in the upper abdomen. 2. The absence of oral contrast limits evaluation for bowel leak. Within this limitation, two pelvic abscesses are present, the larger in the posterior right pelvis measuring 6.5 cm and the smaller in the anterior left pelvis measuring 3.9 cm. These are intimately associated with adjacent bowel as detailed above. 3. Subcapsular hepatic and splenic collections. An infectious etiology/abscess cannot be excluded. 4. Bibasilar tree-in-bud opacities suggest bronchiolitis. Besides infectious bronchiolitis etiologies, this could represent aspiration especially given the presence of segmental and subsegmental bronchial debris. 5. Prostatomegaly with chronic bladder outlet obstruction. 6. Gastrostomy tube appropriately positioned. 7. Infrarenal abdominal aortic ectasia. Electronically signed by: Colin Deutsch M.D. 10/26/2017 7:18 AM Dictated Date/Time: 10/26/2017 6:55 AM
[2017-10-26] MEDS ORDERED: LEVALBUTEROL/IPRATROPIUM NEB INH STA (08:20)
[2017-10-26] MEDS ORDERED: LEVALBUTEROL 1.25MG/0.5ML NEB INH STA (08:36)
[2017-10-26] MEDS ORDERED: IPRATROPIUM BROMIDE NEB SOLN 0.02% 2.5 ML VIAL INH STA (08:36)
--- NOTE | 2017-10-26 09:37 | HISTORY & PHYSICAL EXAMINATION ---
DATE OF CONSULTATION: 10/26/2017 PRIMARY CARE DOCTOR: Juan Mckeon PA-C of [facility]. CHIEF COMPLAINT: Chest pain, shortness of breath, abdominal pain HISTORY OF PRESENT ILLNESS: History obtained from patient, sister and records. Medical history is significant for CAD, esophageal cancer status post chemoradiation, ongoing tobacco abuse, hypertension, PVD as per records, chronic anemia (baseline hemoglobin 9) Patient diagnosed to have stage III distal esophageal cancer in July of 2017. Subsequently underwent chemoradiation. Patient admitted at [facility] from 10/08- for perforated carcinoma of the esophagus. Patient underwent diagnostic laparoscopy with drain placement, percutaneous endoscopic gastrostomy. Discharged on TPN, strict nothing by mouth instructions, IV PPI and prophylactic Lovenox subcutaneous injections. Home oral cardiac medications held on discharge. Patient and family awaiting plans for future management pending tumor board discussion this week. Last night, patient noted pleuritic left-sided chest pain, nonradiating, achy with some shortness of breath, palpitations different from heart attack in the past. Denies cough symptoms. He also noted central abdominal discomfort, achy, some nausea, no vomiting. Loose stools noted. Patient brought to the Emergency Room. MEDICAL HISTORY: As above. A 2D echo from June 2017 showed LVH, moderate sized septal, inferior posterior wall motion abnormality with hypokinesis to dyskinesis segment, small sized basal septal aneurysm, EF of 54%, aortic sclerosis, moderate MR. SURGERIES: He has had vascular procedures, diagnostic laparoscopy with drainage. HOME MEDICATIONS: Include Lovenox 40 mg subQ daily, TPN, Protonix 40 mg daily. TPN ALLERGIES: No drug allergies. FAMILY HISTORY: There is a family history of heart disease. PERSONAL AND SOCIAL HISTORY: Down to 1 cigarette a day. No chronic intake of alcoholic beverages, currently disabled. REVIEW OF SYSTEMS: As per HPI, all 10 systems reviewed. All other ROS negative. PHYSICAL EXAMINATION: VITAL SIGNS: Blood pressure noted to be initially 89/67 later 110/69, pulse rate 120, later 99, RR 24, temperature 36.6, sats 89 on room air, later 91 on 4 liters. GENERAL: Noted to be hyposthenic, min respiratory distress, anxious. SKIN: Pallor, warm. HEENT: Pale palpebral conjuctivae. No ptosis. Dry buccal mucosa. NECK: Supple. No tenderness. LUNGS: Decreased breath sounds. No chest wall tenderness. HEART: Tachycardic, systolic murmur. ABDOMEN: Scaphoid abdomen, some tenderness on light palpation. G-tube noted. Drains noted exiting from the abdominal wall. EXTREMITIES: No LE edema, no tenderness. No gross deformity. NEUROLOGIC: Coherent. No gross focality. LABORATORY DATA: Hemoglobin was noted to be 9.9, hematocrit 9.6, white 8.96, platelets 207. Sodium noted to be 136, potassium 4.4, chloride 106, CO2 24, BUN 20, creatinine 0.5, glucose 128. LFTs, lipase normal. Troponin was 0.304. EKG as per my interpretation, rate 150, sinus tachycardia, ST depression in the anterolateral leads, PRWP CT chest showed no pulmonary embolism, peribronchial interstitial prominence of the lower lungs bilaterally. CT abdomen and pelvis showed postsurgical changes with pneumoperitoneum and 2 percutaneous surgical drains in place in the upper abdomen. 2 pelvic abscesses present, larger in the posterior right pelvis measuring 6.5 cm, smaller at the anterior pelvis measure 3.9 cm, subcapsular hepatic fluid collections, bronchiolitis, possible aspiration, chronic bladder outlet obstruction position, infrarenal abdominal aortic ectasia. ASSESSMENT: 1. Chest pain, palpitations, troponinemia secondary to tachycardia, possible sepsis. Possible sources : pelvic abscesses (hx abdominal surgery for perforated esophagus 09/2017 [facility] [place] Diarrhea rule out Clostridium difficile. 2. Acute hypoxemic respiratory failure possible aspiration pneumonitis Patient admits to consumption of ice chips despite strict NPO instructions post surgery 3. hx distal esophageal adenocarcinoma stage III status post chemoradiation 4. hx CAD/PVD 5. HTN, patient's BP on the lower side 6. ongoing tobacco abuse. 7. Chronic anemia, hemoglobin baseline. 8. Malnutrition (low BMI) PLAN IVF Check CS, lactic acid, stool C. difficile IV Cefepime, Flagyl for now Surgery evaluation Baseline ABG Supplemental O2 Nebs Case d/w Dr. Morrow [facility] [place] surgeon on-call. He recommended transfer back to [facility] for Interventional Radiology capability. Patient adamantly refused transfer due to suboptimal experience from recent confinement. He requests coordination of transfer to other tertiary centers. ADDENDUM : Unsuccessful attempts to transfer patient to non-[facility] tertiary centers. Patient subsequently expressed decision not to undergo further procedures related to his surgery, cancer, further cardiac work up. He is only interested in medical management for his pelvic abscesses at this point. Comfort care if infection does not respond to medical management as per patient' s wishes. Palliative care consult. DO NOT RESUSCITATE. FRANCY
[2017-10-26] MEDS ORDERED: ACETAMINOPHEN IV 650 MG in EMPTY BAG 0 ML IV PRN (13:15)
[2017-10-26] MEDS ORDERED: LORAZEPAM 2 MG/ML 1 ML VIAL IV PRN (13:15)
[2017-10-26] MEDS ORDERED: NON-FORMULARY MEDICATION SCH (13:15)
[2017-10-26] MEDS ORDERED: SODIUM CHLORIDE 0.9% 1000ML 1,000 ML IV ONE (13:15)
[2017-10-26] MEDS ORDERED: LEVALBUTEROL/IPRATROPIUM NEB INH PRN (13:45)
[2017-10-26 14:27] VITALS: BP 118/71; PULSE 96; TEMP 36.6; O2SAT 98
[2017-10-26 14:40] VITALS: O2SAT 98; Ht 177.8 cm; Wt 61.6 kg
[2017-10-26] MEDS ORDERED: IPRATROPIUM BROMIDE NEB SOLN 0.02% 2.5 ML VIAL INH PRN (14:45)
[2017-10-26] MEDS ORDERED: LEVALBUTEROL 1.25MG/0.5ML NEB INH PRN (14:45)
--- NOTE | 2017-10-26 15:13 | Palliative Care Consultation ---
Consultation Date of Consultation: Oct 26, 2017. Requesting Physician: Dr. Rabago Attending Physician: Dr. Koroma Reason for Consultation: Goals of care History of Present Illness This 62 year old male patient with esophageal cancer, gastric perforation s/p surgical repair [place] [facility], biliary drains, and abdominal abscesses, presented to the hospital last night with chest pain. Troponin elevated, EKG showed anterolateral ST depression but otherwise sinus tach. CT abd/pelvis showed :postsurgical changes with pneumoperitoneum and [address] dra[address] in place in the upper abdomen. 2 pelvic abscesses present, larger in the posterior right pelvis measuring 6.5 cm, smaller at the anterior pelvis measure 3.9 cm, subcapsular hepatic fluid collections, bronchiolitis, possible aspiration, chronic bladder outlet obstruction position, infrarenal abdominal aortic ectasia." General surgery consulted who saw patient on - try abx for now. If no improvement, may need abscesses drained. Still if no improvement after that, patient would need to be transferred to tertiary care if he wants surgical intervention or he could choose to just pursue palliative care. Palliative care was consulted here-- I saw patient in ED and in room 403. Last chemo under Dr. Jimenez's care was October 04. Last radiation treatment was October [address] Justice Iniguez's care. Patient completed 3 of 4 rounds of chemo, but there are no plans for him to receive the 4th round due to progression of disease/patient decline (per the family, I am unable to see patient's records). On 10/08, he presented to [facility] with gastric perforation- he was sent to [facility] in [place]. Since discharge, he's been living with his sister Francia and her . Patient expressed to me that he is really just concerned with focusing on comfort at this point, but is okay with continuing medical management as described above while he is here to see if there is improvement. He is admitted, on IV abx, and we will see how he does. Patient's sister, Francia (who is also patient's caregiver), at bedside along with patient's son and Francia's . They are all in agreement with current plan. Of note, the family and patient stated that they wanted patient to be transferred to [facility] hospice unit in [place] upon discharge. I contacted Dr. Arzola at [facility]. They will possibly have beds available next week, but of course patient will need to meet criteria for inpatient hospice-- ongoing skilled need for symptom management. I do not think patient current meets GIP criteria, but this could certainly change. Past Medical/Surgical History Medical History: EF 56% Moderate mitral regurg Mild LVH Esophageal cancer Social History Smoking Status: Current Every Day Smoker History of Alcohol Use: Yes (Very Rarely ) Marital Status: single Occupation Status: employed Review of Systems Constitutional: + weight loss, + weakness ENT: No trouble swallowing Respiratory: No shortness of breath, No dyspnea on exertion Cardiac: No chest pain (resolved at this time), No edema Abdomen: + pain, + problem reported (strict NPO status), No nausea, No vomiting Psychiatric: No depression symptoms, No anxiety Allergies Coded Allergies: No Known Allergies (Verified , 08/09/17) Medications Current Inpatient Medications Medications (Trade) Dose Ordered Sig/Zahira Route Start Time Stop Time Status Last Admin Dose Admin Ioversol (Optiray 320) 100 ml UD PRN IV 10/26/17 05:00 10/30/17 04:59 Morphine Sulfate (MoRPHine SULFATE INJ) 2 mg Q3H PRN IV 10/26/17 07:00 11/09/17 06:59 Prochlorperazine Edisylate 5 mg/ Syringe 5 ml @ 5 mls/min Q6H PRN IV 10/26/17 07:00 11/25/17 06:59 Enoxaparin Sodium (Lovenox Inj) 30 mg Q24H SQ 10/26/17 14:00 11/25/17 13:59 Acetaminophen 650 mg/Empty Bag 65 ml @ 260 mls/hr Q6H PRN IV 10/26/17 13:15 11/25/17 13:14 Lorazepam (Ativan Inj) 0.5 mg Q4H PRN IV 10/26/17 13:15 11/25/17 13:14 Sodium Chloride 1,000 ml @ 60 mls/hr [id number] ONCE IV 10/26/17 13:15 10/27/17 05:54 Pantoprazole Sodium 40 mg/ Syringe 10 ml @ 5 mls/min DAILY IV 10/27/17 08:00 11/26/17 08:59 Cefepime HCl (Consult) 1 ea UD PRN N/A 10/27/17 09:00 11/26/17 08:59 Metronidazole 500 mg/Prmx 100 ml @ 100 mls/hr Q8H IV 10/26/17 16:00 11/05/17 07:59 Non-Formulary Medication 1 ea UD N/A 10/26/17 13:15 11/25/17 13:14 UNV Ipratropium [place] (Atrovent 0.02% 0.5MG/2.5ML Neb) 0.5 mg Q4R PRN INH 10/26/17 14:45 11/25/17 14:44 Levalbuterol (Xopenex 1.25MG/ 0.5ML Neb) 1.25 mg Q4R PRN INH 10/26/17 14:45 11/25/17 14:44 Physical Exam Date Time Temp Pulse Resp B/P (MAP) Pulse Ox O2 Delivery O2 Flow Rate FiO2 10/26/17 14:27 36.6 96 18 118/71 (87) 98 4.0 10/26/17 13:25 101 18 117/79 98 Nasal Cannula 4.0 10/26/17 10:57 94 18 106/73 97 Nasal Cannula 4.0 10/26/17 09:00 99 Nasal Cannula 4.0 10/26/17 08:57 98 20 106/65 98 Nasal Cannula 5.0 10/26/17 07:44 100 20 119/67 98 Nasal Cannula 5.0 10/26/17 07:00 107 22 117/70 97 10/26/17 06:45 108 22 119/67 96 10/26/17 06:30 108 16 117/70 94 10/26/17 06:15 122 25 94/57 97 10/26/17 06:00 106 23 109/69 97 10/26/17 05:38 110 24 112/61 95 6.0 10/26/17 05:15 99 97 6.0 10/26/17 05:00 120 26 110/69 95 10/26/17 04:45 120 24 100/61 95 10/26/17 04:30 122 29 103/64 94 10/26/17 04:15 127 24 105/65 92 10/26/17 04:00 123 23 95/60 97 10/26/17 03:45 131 26 92/60 95 10/26/17 03:30 147 39 107/66 93 10/26/17 03:18 150 10/26/17 03:16 134 35 102/69 93 4.0 10/26/17 03:12 144 29 89/67 89 10/26/17 03:06 36.6 149 32 110/69 91 Nasal Cannula 4.0 10/26/17 03:06 82 Room Air 10/26/17 03:05 91 Nasal Cannula 4.0 10/26/17 03:05 145 32 110/69 89 10/26/17 03:00 150 29 81 General Appearance: no apparent distress, + cachetic, + thin ENT: hearing grossly normal Neck: supple, no JVD Respiratory: no respiratory distress, no accessory muscle use, + decreased breath sounds Cardiovascular: regular rate, rhythm, no edema, + tachycardia, + normal peripheral pulses Abdomen: normal bowel sounds, + pertinent finding (left sided drain, PEG tube, right sided wound covered with dressing) Neurologic/Psychiatric: alert, normal mood/affect, oriented x 3 Laboratory Results Last 24 Hours Test 10/26/17 03:05 10/26/17 03:12 10/26/17 03:17 10/26/17 04:55 White Blood Count 8.96 K/uL Red Blood Count 3.17 M/uL Hemoglobin 9.9 g/dL Hematocrit 29.6 % Mean Corpuscular Volume 93.4 fL Mean Corpuscular Hemoglobin 31.2 pg Mean Corpuscular Hemoglobin Concent 33.4 g/dl Platelet Count 297 K/uL Mean Platelet Volume 11.9 fL Neutrophils (%) (Auto) 77.9 % Lymphocytes (%) (Auto) 11.8 % Monocytes (%) (Auto) 8.6 % Eosinophils (%) (Auto) 0.0 % Basophils (%) (Auto) 0.1 % Neutrophils # (Auto) 6.98 K/uL Lymphocytes # (Auto) 1.06 K/uL Monocytes # (Auto) 0.77 K/uL Eosinophils # (Auto) 0.00 K/uL Basophils # (Auto) 0.01 K/uL RDW Standard Deviation 57.5 fL RDW Coefficient of Variation 18.3 % Immature Granulocyte % (Auto) 1.6 % Immature Granulocyte # (Auto) 0.14 K/uL Nucleated RBC Absolute Count (auto) 0.07 K/uL Nucleated Red Blood Cells % 0.8 % Toxic Granulation 1+ Toxic Vacuolation OCCASIONAL Dohle Bodies 2+ Polychromasia 1+ Anisocytosis PRESENT Prothrombin Time 14.6 SECONDS Prothromb Time International Ratio 1.3 Activated Partial Thromboplast Time 29.4 SECONDS Partial Thromboplastin Ratio 1.1 Sodium Level 136 mmol/L Potassium Level 4.4 mmol/L Chloride Level 106 mmol/L Carbon Dioxide Level 24 mmol/L Anion Gap 6.0 mmol/L 16.0 mmol/L Blood Urea Nitrogen 25 mg/dl Creatinine 0.54 mg/dl Est Creatinine Clear Calc Drug Dose 128.2 ml/min Estimated GFR () 132.3 Estimated GFR (Non- 114.1 BUN/Creatinine Ratio 45.7 Random Glucose 128 mg/dl Calcium Level 7.5 mg/dl Total Bilirubin 1.1 mg/dl Direct Bilirubin 0.7 mg/dl Aspartate Amino Transf (AST/SGOT) 24 U/L Alanine Aminotransferase (ALT/SGPT) 35 U/L Alkaline Phosphatase 113 U/L Total Creatine Kinase 17 U/L Creatine Kinase MB 1.5 ng/ml Creatine Kinase MB Ratio 8.8 Troponin I 0.304 ng/ml 0.552 ng/ml Total Protein 6.8 gm/dl Albumin 1.5 gm/dl Bedside Troponin I 0.260 ng/ml Bedside Hemoglobin 13.3 g/dl Bedside Hematocrit 39 % Bedside Sodium 138 mEq/L Bedside Potassium 4.5 mEq/L Bedside Chloride 106 mEq/L Bedside Total CO2 22 mEq/l Bedside Blood Urea Nitrogen 24 mg/dl Bedside Creatinine 0.5 mg/dl Bedside Glucose (other) 132 mg/dl Bedside Ionized Calcium (Lucy) 0.94 mmol/l Lactic Acid Level 1.3 mmol/L Magnesium Level 1.6 mg/dl Lipase 32 U/L Thyroid Stimulating Hormone (TSH) 1.050 uIu/ml Test 10/26/17 05:09 Arterial Blood pH 7.49 Arterial Blood Partial Pressure CO2 31 mmHg Arterial Blood Partial Pressure O2 83 mm/Hg Arterial Blood HCO3 23 mmol/L Arterial Blood Oxygen Saturation 92.1 % Arterial Blood Base Excess 0.2 mEq/L Arterial Blood Gas Delivery 6L Dmitriy Test POS Assessment & Plan Problem list: Chest pain- none at this time Weight loss Weakness Abdominal pain- 2-02/02, "not bad" at this time Esophageal cancer- s/p 3 rounds chemo- last dose 10/04. S/p XRT- last treatment 10/05. Gastric perforation s/p repair at [facility] mid-September [place] Strict NPO status- is on TPN at home during the night Goals of care (Z51.5) Palliative care recs: -Patient is level 5 DNR per previous discussion. -Patient's goal is for comfort and good quality of life. He'd like to avoid invasive procedures or transfer to tertiary care facility. -Upon discharge, patient and his family would like hospice care. They are interested in the [facility] unit in [place], but of course patient would have to meet criteria general inpatient hospice. At this point in time, I do not see a qualifications for [facility] hospice, but will continue to reassess. -There are no plans for further chemotherapy. -Plan is to give IV abx for the abdominal abscesses. If no improvement, may need drained per surgeon. Again, patient told me that he prefers to not be transferred to tertiary care for surgical intervention at this time. If no improvement, will likely just want to transition to comfort care. -Would request outside records from [facility]. Thank you kindly for this consult. I will follow during this stay.
[2017-10-26] MEDS ORDERED: NURSING VERBAL MED ORDER ONE (15:15)
[2017-10-26] MEDS ORDERED: PANTOprazole INJ 40 MG in SYRINGE 0 ML IV ONE (15:30)
[2017-10-26] MEDS ORDERED: TPN/PPN CONSULT PHARMACY PRN (15:30)
--- NOTE | 2017-10-26 15:32 | Pharmacy Progress Note ---
Pharmacy Progress Note Date of Service Oct 26, 2017. Progress Note Received order for patient's own TPN per Dr Rabago. I spoke with patient's sister Francia via telephone. She will bring in a bag from home for tonight's infusion. Obtained formula from [facility] for subsequent infusions. Nursing ( Marissa) sent paper for patient to sign regarding no liability for anything that is wrong with outside TPN. Labs ordered and dietary consult placed. Thank you for engaging the clinical pharmacy consult service in the care of this patient. Please let us know if we can be of further assistance.
--- NOTE | 2017-10-26 15:34 | Pre-Operative Consultation ---
History General Date of Service: Oct 26, 2017. HPI HPI: The patient is a 62 year old male being seen for pelvic abscess. He was admitted complaints of resolved chest pain, SOB, nausea and abdominal pain. He is s/p recent diagnostic laparoscopy and drainage of perforated esophageal CA. He has g-tube and two drains adjacent to the drains. He has been complaining of abdominal pain for the past couple of days. The patient has a history of ID. He was told he had a perforated tumor earlier this week. He will not have any more chemo or radiation treatment. He denies any history of irregular heartbeat. He denies any alcohol use. A CT scan shows pelvic abscesses that likely will beed drainage the largest being 6.5cm. The patient refuses to be transferred. Historian: patient, family Procedure Urgency: Acute Risk Assessment Daily beta juan francisco use?: No Problem List Medical Problems: (1) NSTEMI (non-ST elevated myocardial infarction) Status: Acute (2) Perforated bowel Status: Acute (3) Sepsis Status: Acute Medical & Surgical History Past Medical History: cancer (perforated esophageal CA s/p drainage), heart disease, hypertension Past Surgical History: other (diagnostic lap w/drainage perforation and g-tube) Family History Family History: cancer, diabetes, heart disease, hypertension Social History Hx Tobacco Use In Past Year?: Yes (0.5pack/day for 46 yrs - Cutting back 0.25/ pack/day) Smoking Status: Current Every Day Smoker Marital status: single Occupation status: employed Allergies Allergies: Coded Allergies: No Known Allergies (Verified , 08/09/17) Medications Current Inpatient Medications Current Inpatient Medications Medications (Trade) Dose Ordered Sig/Zahira Route Start Time Stop Time Status Last Admin Dose Admin Ioversol (Optiray 320) 100 ml UD PRN IV 10/26/17 05:00 10/30/17 04:59 Morphine Sulfate (MoRPHine SULFATE INJ) 2 mg Q3H PRN IV 10/26/17 07:00 11/09/17 06:59 Prochlorperazine Edisylate 5 mg/ Syringe 5 ml @ 5 mls/min Q6H PRN IV 10/26/17 07:00 11/25/17 06:59 Enoxaparin Sodium (Lovenox Inj) 30 mg Q24H SQ 10/26/17 14:00 11/25/17 13:59 Acetaminophen 650 mg/Empty Bag 65 ml @ 260 mls/hr Q6H PRN IV 10/26/17 13:15 11/25/17 13:14 Lorazepam (Ativan Inj) 0.5 mg Q4H PRN IV 10/26/17 13:15 11/25/17 13:14 Sodium Chloride 1,000 ml @ 60 mls/hr [id number] ONCE IV 10/26/17 13:15 10/27/17 05:54 Pantoprazole Sodium 40 mg/ Syringe 10 ml @ 5 mls/min DAILY IV 10/27/17 08:00 11/26/17 08:59 Cefepime HCl (Consult) 1 ea UD PRN N/A 10/27/17 09:00 11/26/17 08:59 Metronidazole 500 mg/Prmx 100 ml @ 100 mls/hr Q8H IV 10/26/17 16:00 11/05/17 07:59 Non-Formulary Medication 1 ea UD N/A 10/26/17 13:15 11/25/17 13:14 UNV Ipratropium [place] (Atrovent 0.02% 0.5MG/2.5ML Neb) 0.5 mg Q4R PRN INH 10/26/17 14:45 11/25/17 14:44 Levalbuterol (Xopenex 1.25MG/ 0.5ML Neb) 1.25 mg Q4R PRN INH 10/26/17 14:45 11/25/17 14:44 Cefepime HCl 2000 mg/Syringe 20 ml @ 5 mls/min Q12H IV 10/26/17 20:00 11/05/17 19:59 Review of Systems Review of Systems Constitutional: chills, denies diaphoresis, denies fever, weakness Eyes: reports: no symptoms ENT: reports: no symptoms reported Cardiovascular: reports: chest pain, denies: chest tightness, chest pressure Respiratory: reports: short of breath, denies: cough, stridor, wheezing Gastrointestinal: abdominal pain, denies constipation, denies diarrhea, nausea Genitourinary - Male: reports: no symptoms Musculoskeletal: denies back pain, denies joint pain, denies joint swelling Integumentary: denies change in color, denies change in hair/nails, denies dryness Neurologic: reports: no symptoms Psychiatric: reports: no symptoms Hematologic / Lymphatic: no symptoms Allergic / Immunologic: no symptoms Physical Exam Physical Exam General Appearance: + nutrition abnormality, No distress Ears, Nose, Throat: + normal ENT inspection Neck: No tracheal deviation, No lymphadenophy Respiratory: No decreased breath sounds Cardiovascular: + tachycardia, No diastolic murmur, No bradycardia, No systolic murmur Abdomen: + tenderness, + other (two drains; g-tube), No abnormal bowel sounds, No distension, No hernia, No organomegaly Extremities: No deformity, No swelling Neurologic/Psychiatric: No motor deficit/weakness, No disorientation, No sensory deficit Skin Characteristics: No abnormal color, No diaphoresis, No pallor, No jaundice , No rash Lymphatic: No abnormal adenopathy Diagnostics Labs Labs Results Past 24 Hours Test 10/26/17 03:05 10/26/17 03:12 10/26/17 03:17 10/26/17 04:55 Range/Units White Blood Count 8.96 4.8-10.8 K/uL Red Blood Count 3.17 4.7-6.1 M/uL Hemoglobin 9.9 14.0-18.0 g/dL Hematocrit 29.6 42-52 % Mean Corpuscular Volume 93.4 80-100 fL Mean Corpuscular Hemoglobin 31.2 25-34 pg Mean Corpuscular Hemoglobin Concent 33.4 32-36 g/dl Platelet Count 297 130-400 K/uL Mean Platelet Volume 11.9 7.4-10.4 fL Neutrophils (%) (Auto) 77.9 % Lymphocytes (%) (Auto) 11.8 % Monocytes (%) (Auto) 8.6 % Eosinophils (%) (Auto) 0.0 % Basophils (%) (Auto) 0.1 % Neutrophils # (Auto) 6.98 1.4-6.5 K/uL Lymphocytes # (Auto) 1.06 1.2-3.4 K/uL Monocytes # (Auto) 0.77 0.11-0.59 K/uL Eosinophils # (Auto) 0.00 0-0.5 K/uL Basophils # (Auto) 0.01 0-0.2 K/uL RDW Standard Deviation 57.5 36.4-46.3 fL RDW Coefficient of Variation 18.3 11.5-14.5 % Immature Granulocyte % (Auto) 1.6 % Immature Granulocyte # (Auto) 0.14 0.00-0.02 K/uL Nucleated RBC Absolute Count (auto) 0.07 0-0 K/uL Nucleated Red Blood Cells % 0.8 % Toxic Granulation 1+ Toxic Vacuolation OCCASIONAL Dohle Bodies 2+ Polychromasia 1+ Anisocytosis PRESENT Prothrombin Time 14.6 9.0-12.0 SECONDS Prothromb Time International Ratio 1.3 0.9-1.1 Activated Partial Thromboplast Time 29.4 21.0-31.0 SECONDS Partial Thromboplastin Ratio 1.1 Sodium Level 136 136-145 mmol/L Potassium Level 4.4 3.5-5.1 mmol/L Chloride Level 106 98-107 mmol/L Carbon Dioxide Level 24 21-32 mmol/L Anion Gap 6.0 16.0 16-25 mmol/L Blood Urea Nitrogen 25 7-18 mg/dl Creatinine 0.54 0.60-1.40 mg/dl Est Creatinine Clear Calc Drug Dose 128.2 ml/min Estimated GFR () 132.3 Estimated GFR (Non- 114.1 BUN/Creatinine Ratio 45.7 10-20 Random Glucose 128 70-99 mg/dl Calcium Level 7.5 8.5-10.1 mg/dl Total Bilirubin 1.1 0.2-1 mg/dl Direct Bilirubin 0.7 0-0.2 mg/dl Aspartate Amino Transf (AST/SGOT) 24 15-37 U/L Alanine Aminotransferase (ALT/SGPT) 35 12-78 U/L Alkaline Phosphatase 113 45-117 U/L Total Creatine Kinase 17 39-308 U/L Creatine Kinase MB 1.5 0.5-3.6 ng/ml Creatine Kinase MB Ratio 8.8 0-3.0 Troponin I 0.304 0.552 0-0.045 ng/ml Total Protein 6.8 6.4-8.2 gm/dl Albumin 1.5 3.4-5.0 gm/dl Bedside Troponin I 0.260 0-0.045 ng/ml Bedside Hemoglobin 13.3 14.0-18.0 g/dl Bedside Hematocrit 39 42-52 % Bedside Sodium 138 135-144 mEq/L Bedside Potassium 4.5 3.3-5.0 mEq/L Bedside Chloride 106 101-112 mEq/L Bedside Total CO2 22 24-31 mEq/l Bedside Blood Urea Nitrogen 24 7-18 mg/dl Bedside Creatinine 0.5 0.6-1.3 mg/dl Bedside Glucose (other) 132 70-99 mg/dl Bedside Ionized Calcium (Lucy) 0.94 1.12-1.32 mmol/l Lactic Acid Level 1.3 0.4-2.0 mmol/L Magnesium Level 1.6 1.8-2.4 mg/dl Lipase 32 73-393 U/L Thyroid Stimulating Hormone (TSH) 1.050 0.300-4.500 uIu/ml Test 10/26/17 05:09 Range/Units Arterial Blood pH 7.49 7.35-7.45 Arterial Blood Partial Pressure CO2 31 35-46 mmHg Arterial Blood Partial Pressure O2 83 80-95 mm/Hg Arterial Blood HCO3 23 19-24 mmol/L Arterial Blood Oxygen Saturation 92.1 90-95 % Arterial Blood Base Excess 0.2 -9-1.8 mEq/L Arterial Blood Gas Delivery 6L Dmitriy Test POS POS Microbiology Results 10/26/17 Blood Culture, Received Pending 10/26/17 Blood Culture, Received Pending Diagnostic Radiology Diagnostic Radiology ABD/PELVIS IV CONTRAST ONLY CLINICAL HISTORY: 62 years-old Male presenting with severe abdominal pain, history of gastric cancer. TECHNIQUE: Multidetector CT of the abdomen and pelvis was performed after the administration of intravenous contrast. IV contrast: 92 mL of Optiray 320. A dose lowering technique was used consistent with the principles of ALARA (as low as reasonably achievable). COMPARISON: 10/08/2017. CT DOSE (mGy.cm): The estimated cumulative dose is 574.26 mGy.cm. FINDINGS: Licensed Professional Counselor topogram: Upper abdominal surgical drains in place. Lung bases: Tree-in-bud opacities primarily in the posterior basal segments of the bilateral lower lobes. Irregular nodular opacity measuring 9 mm in the lingula (series 6 image 22) disease. Segmental and subsegmental filling defects in the lower lobe bronchi consistent with debris or mucus plugging. Coronary artery calcification. Normal heart size. No pericardial or pleural effusion. Liver: Subcapsular fluid collection along the lateral and inferior right hepatic lobe exerting mass effect on the underlying parenchyma. This collection is limited in configuration and measures up to 3.9 x 1.0 cm in maximal axial dimensions. No hepatic lesion. Patent hepatic vasculature. Biliary: No intrahepatic or extrahepatic biliary ductal dilatation. Gallbladder surgically absent. Pancreas: Mild parenchymal atrophy. Spleen: Large subcapsular fluid collection along the lateral spleen, which measures up to 11.9 x 3.9 cm in maximal axial dimensions. Mass effect on the splenic parenchyma, which is otherwise normal. Adrenal glands: Nodular thickening of the left adrenal gland, nonspecific. Right adrenal gland normal. Kidneys and ureters: Normal. No hydronephrosis. Renal vascular calcification noted. Bladder: Mild circumferential bladder wall thickening, possibly indicating chronic bladder outlet obstruction. Pelvic organs: Prostate enlargement likely secondary to benign prostatic hyperplasia. Bowel: Diverticulosis of the sigmoid colon with wall thickening though no significant pericolonic fat stranding. This likely represents chronic diverticular disease. Normal appendix. No bowel obstruction. Mild small bowel wall thickening suggested diffusely. Mild wall thickening of the gastric antrum. Peritoneal cavity: 2 percutaneous [address] dra[address] in place, one in the right upper quadrant with minimal fluid along its course through the anterior abdominal wall musculature and terminating anteriorly in the epigastrium. The second drain has a left upper abdominal percutaneous entry site and terminates in the anterior right mid abdomen intimately associated with the course of the right-sided drain. Pneumoperitoneum evident in the upper abdomen likely postoperative given the presence of the surgical drains. A gastrostomy tube is appropriately positioned in the gastric body/antrum. In addition to the perihepatic and perisplenic subcapsular fluid collections, there are two rim-enhancing fluid collections in the pelvis: 1) the larger in the right posterior pelvis measuring 6.5 x 5.4 cm (series 6 image 377) abutting the pelvic small bowel and rectosigmoid junction and 2) the smaller in the anterior left pelvis measuring 3.9 x 1.6 cm (series 6 image 354) extending from the distal descending colon along the left paracolic gutter and abutting left superior pelvic small bowel and extending medially and inferiorly along the sigmoid colon. Lymph nodes: No enlarged lymph nodes in the abdomen or pelvis. Vasculature: Atherosclerosis of the abdominal aorta with slightly eccentric though fusiform aneurysmal dilatation of the infrarenal portion, which measures 3.3 x 2.5 cm in maximal transverse dimension. No aneurysmal dilatation of the iliac vessels. IVC patent. Abdominal wall: Mild body wall edema. No significant fluid collection. Musculoskeletal: Degenerative changes of the spine. IMPRESSION: 1. Postsurgical changes with pneumoperitoneum and [address] in place in the upper abdomen. 2. The absence of oral contrast limits evaluation for bowel leak. Within this limitation, two pelvic abscesses are present, the larger in the posterior right pelvis measuring 6.5 cm and the smaller in the anterior left pelvis measuring 3.9 cm. These are intimately associated with adjacent bowel as detailed above. 3. Subcapsular hepatic and splenic collections. An infectious etiology/abscess cannot be excluded. 4. Bibasilar tree-in-bud opacities suggest bronchiolitis. Besides infectious bronchiolitis etiologies, this could represent aspiration especially given the presence of segmental and subsegmental bronchial debris. 5. Prostatomegaly with chronic bladder outlet obstruction. 6. Gastrostomy tube appropriately positioned. 7. Infrarenal abdominal aortic ectasia. Impression Assessment and Plan Assessment and Plan perforated esophageal CA with pelvic abscess -6.5cm abscess in pelvis -would recommend drainage if doesn't respond to abx -consider hospice
[2017-10-26] MEDS: ENOXAPARIN 30 MG/0.3 ML SYR SQ SCH (15:47)
[2017-10-26] MEDS: METRONIDAZOLE / NSS 500 MG in PREMIXED NSS 100 ML IV SCH (16:02)
[2017-10-26] MEDS: MoRPHine SULFATE 2 MG/ML CARP IV PRN ×2 (16:02→21:03)
[2017-10-26 19:10] VITALS: BP 105/62; PULSE 93; TEMP 36.3; O2SAT 99
[2017-10-26] MEDS ORDERED: DEXTROSE 10% 1,000 ML IV PRN (19:47)
[2017-10-26] MEDS: CEFEPIME IV 2,000 MG in SYRINGE 7.5 ML IV SCH (20:41)
[2017-10-26] MEDS ORDERED: LORAZEPAM INJ 0.5 MG in SYRINGE 0.75 ML IV PRN (21:00)
[2017-10-26] MEDS ORDERED: CUSTOM CENTRAL PN 1 BAG IV SCH (21:00)
[2017-10-26 23:32] VITALS: BP 130/67; PULSE 65; TEMP 36.5; O2SAT 95
[2017-10-27] VITALS (7 sets, daily range): BP systolic 90–144; BP diastolic 61–76; PULSE 80–116; TEMP 36.3–36.6; O2SAT 96–98
[2017-10-27] MEDS: MoRPHine SULFATE 2 MG/ML CARP IV PRN ×6 (00:03→20:51)
[2017-10-27] MEDS: METRONIDAZOLE / NSS 500 MG in PREMIXED NSS 100 ML IV SCH ×4 (00:08→23:50)
--- NOTE | 2017-10-27 05:13 | Surgery Progress Note ---
Surgery Progress Note Date of Service Oct 27, 2017. Subjective Post OP Day: HD 2 + feeling well (better), + flatus, + pain controlled, + diet (TPN), No chest pain, No nausea, No vomiting Objective Vital Signs: Date Time Temp Pulse Resp B/P (MAP) Pulse Ox O2 Delivery O2 Flow Rate FiO2 10/27/17 03:45 36.3 88 16 109/62 (78) 97 Nasal Cannula 4.0 10/27/17 00:00 Room Air 10/26/17 23:32 36.5 65 20 130/67 (88) 95 Nasal Cannula 10/26/17 19:10 36.3 93 18 105/62 (76) 99 Nasal Cannula 4.0 10/26/17 16:10 Nasal Cannula 4.0 10/26/17 14:40 98 Nasal Cannula 4.0 10/26/17 14:27 36.6 96 18 118/71 (87) 98 4.0 10/26/17 13:25 101 18 117/79 98 Nasal Cannula 4.0 10/26/17 10:57 94 18 106/73 97 Nasal Cannula 4.0 10/26/17 09:00 99 Nasal Cannula 4.0 10/26/17 08:57 98 20 106/65 98 Nasal Cannula 5.0 10/26/17 07:44 100 20 119/67 98 Nasal Cannula 5.0 10/26/17 07:00 107 22 117/70 97 10/26/17 06:45 108 22 119/67 96 10/26/17 06:30 108 16 117/70 94 10/26/17 06:15 122 25 94/57 97 10/26/17 06:00 106 23 109/69 97 10/26/17 05:38 110 24 112/61 95 6.0 10/26/17 05:15 99 97 6.0 Physical Exam: JENNY drainage (purulent) General Appearance: WD/WN, + cachetic Head: normocephalic, atraumatic Neck: supple, trachea midline Respiratory/Chest: + decreased breath sounds Cardiovascular: regular rate, rhythm Abdomen: normal bowel sounds, non distended, soft, + tenderness (less diffuse tenderness) Incision(s): clean, dry Extremities: non-tender, no pedal edema Laboratory Results: Results Past 24 Hours Test 10/26/17 18:10 10/27/17 00:08 10/27/17 04:44 Range/Units Bedside Glucose 86 213 70-99 mg/dl Assessment & Plan peforated esophageal CA w/pelvic abscesses -responding to IV abx -NPO -not wanted any intervention -consider Hospice
[2017-10-27 05:51] LABS: HEMATOCRIT 24.6 % (42-52); MEAN CELL VOLUME 94.6 fL (80-100); MEAN CORPUSCULAR HEMOGLOBIN 31.2 pg (25-34); MEAN CORPUSCULAR HGB CONC 32.9 g/dl (32-36); MEAN PLATELET VOLUME 11.4 fL (7.4-10.4); PLATELET COUNT 262 K/uL (130-400); WHITE BLOOD COUNT 5.77 K/uL (4.8-10.8)
[2017-10-27 06:18] LABS: COMPLETE YES; DOHLE BODIES 1+; EOS % 0.2 %; IG% 0.9 %; LARGE PLATELETS 1+; LYMPH % 8.1 %; LYMPH ABS # 0.47 K/uL (1.2-3.4); MONO % 7.1 %; NEUT % 83.7 %; TOXIC GRANULATION 1+
[2017-10-27 06:20] LABS: BLOOD UREA NITROGEN 23 mg/dl (7-18); BUN/CREATININE RATIO 67.6 (10-20); CALCIUM 7.3 mg/dl (8.5-10.1); CARBON DIOXIDE 27 mmol/L (21-32); CHLORIDE 107 mmol/L (98-107); CREATININE 0.35 mg/dl (0.60-1.40); GLUCOSE 165 mg/dl (70-99); MAGNESIUM 1.7 mg/dl (1.8-2.4); POTASSIUM 4.2 mmol/L (3.5-5.1); SODIUM 138 mmol/L (136-145)
[2017-10-27 06:27] LABS: PHOSPHORUS 2.7 mg/dl (2.5-4.9); TRIGLYCERIDES 68 mg/dl (0-150)
[2017-10-27 06:30] LABS: PREALBUMIN 3.1 mg/dl (20-40)
[2017-10-27] MEDS: CEFEPIME IV 2,000 MG in SYRINGE 7.5 ML IV SCH ×2 (07:33→20:49)
[2017-10-27] MEDS: PANTOprazole INJ 40 MG in SYRINGE 0 ML IV SCH (07:38)
[2017-10-27] MEDS ORDERED: TPN~STOP ORDER ONE (09:00)
[2017-10-27] MEDS ORDERED: CEFEPIME CONSULT ACTIVE PRN ×2 (09:00)
[2017-10-27] MEDS: ENOXAPARIN 30 MG/0.3 ML SYR SQ SCH (13:22)
[2017-10-27] MEDS: D5W AND NSS 1,000 ML IV SCH (13:23)
--- NOTE | 2017-10-27 18:41 | Progress Note ---
Internal Med Progress Note Date of Service: Oct 27, 2017. Provider Documentation: SUBJECTIVE: very cachetic male , tired and lethargic opens eyes to voice complain of pain in abdomen 07/05 OBJECTIVE: Vital Signs-as noted below Exam: General-ill appearing male , cachetic Eyes-sclera non icteric ENT-dry oral mucosa Lungs-diminished breath sound Heart-regular Abdomen-scaphoid , multiple drain present , G tube Extremities-cachetic Neuro-very lethargic and tired , no obvious focal deficit noted Lab data as noted below. ASSESSMENT & PLAN: DISTAL ESOPHAGEAL CA S/P CHEMO RADIATION /PELVIC ABSCESS had recent abdominal surgery for perforated esophagus on 09/2017 [facility] CT ABDOMEN/PELVIS SHOWS : two pelvic abscesses are present, the larger in the posterior right pelvis measuring 6.5 cm and the smaller in the anterior left pelvis measuring 3.9 cm. appreciate input form Surgery pt will need IR guided drainage , recommend to transfer to [place] pt does to wants to be transferred to [facility] does not want any surgical intervention cont IV Abx for now very poor prognosis RECURRENT ASPIRATION PNEUMONIA due to severe dysphagia for esophageal CA pt unable to handle own secretion cont broad spectrum Abx SEVERE PROTEIN CALORIE MALNUTRITION : Due to advanced esophageal CA severe dysphagia BMI 19 with low albumin has G tube , unable to tolerate TF has been on TPN at home pt will continue on TPN for now DVT PROPHYLAXIS very high risk /invasive ca Sub q Lovenox DISPOSITION poor prognosis with limited life expectancy appreciate input form palliative care will need referral for Hospice Vital Signs: Date Time Temp Pulse Resp B/P (MAP) Pulse Ox O2 Delivery O2 Flow Rate FiO2 10/28/17 16:00 Room Air 10/28/17 08:00 95 Room Air 10/28/17 07:19 36.5 115 20 103/67 (79) 95 Room Air 10/28/17 04:31 36.3 104 20 92/60 (71) 97 Room Air 10/28/17 00:00 Room Air 10/27/17 22:41 36.5 88 18 118/71 (87) 97 Room Air 10/27/17 19:45 36.4 116 18 90/61 (71) 98 Room Air Lab Results: Results Past 24 Hours Test 10/28/17 00:25 10/28/17 05:25 10/28/17 07:30 Range/Units Bedside Glucose 175 194 70-99 mg/dl Sodium Level 136 136-145 mmol/L Potassium Level 4.3 3.5-5.1 mmol/L Chloride Level 104 98-107 mmol/L Carbon Dioxide Level 26 21-32 mmol/L Anion Gap 6.0 3-11 mmol/L Blood Urea Nitrogen 20 7-18 mg/dl Creatinine 0.33 0.60-1.40 mg/dl Est Creatinine Clear Calc Drug Dose 207.4 ml/min Estimated GFR () > 150.0 Estimated GFR (Non- 139.7 BUN/Creatinine Ratio 60.7 10-20 Random Glucose 154 70-99 mg/dl Calcium Level 7.3 8.5-10.1 mg/dl Phosphorus Level 2.9 2.5-4.9 mg/dl Magnesium Level 1.7 1.8-2.4 mg/dl Triglycerides Level 56 0-150 mg/dl
[2017-10-27] MEDS ORDERED: CUSTOM CENTRAL PN 1 BAG IV SCH (21:00)
[2017-10-28] MEDS: MoRPHine SULFATE 2 MG/ML CARP IV PRN ×5 (00:54→13:24)
[2017-10-28 04:31] VITALS: BP 92/60; PULSE 104; TEMP 36.3; O2SAT 97
--- NOTE | 2017-10-28 06:46 | Surgery Progress Note ---
Surgery Progress Note Date of Service Oct 28, 2017. Subjective Post OP Day: HD 3 + complaints (abdominal pain about the same) Objective Vital Signs: Date Time Temp Pulse Resp B/P (MAP) Pulse Ox O2 Delivery O2 Flow Rate FiO2 10/28/17 04:31 36.3 104 20 92/60 (71) 97 Room Air 10/28/17 00:00 Room Air 10/27/17 22:41 36.5 88 18 118/71 (87) 97 Room Air 10/27/17 19:45 36.4 116 18 90/61 (71) 98 Room Air 10/27/17 16:15 Room Air 10/27/17 14:45 36.6 92 18 107/67 (80) 96 10/27/17 10:54 36.6 81 18 109/72 (84) 96 10/27/17 08:00 96 Room Air 10/27/17 07:45 36.6 80 18 144/76 (98) 96 Room Air Physical Exam: JENNY drainage (purulent) General Appearance: no apparent distress, + cachetic Head: normocephalic, atraumatic Neck: supple, trachea midline Respiratory/Chest: lungs clear, + decreased breath sounds Cardiovascular: regular rate, rhythm, no edema, no murmur Abdomen: normal bowel sounds, non distended, soft, + tenderness Incision(s): clean, dry, intact Extremities: non-tender, no pedal edema Laboratory Results: Results Past 24 Hours Test 10/27/17 12:10 10/27/17 12:44 10/27/17 18:43 10/28/17 00:25 Range/Units Bedside Glucose 68 71 88 175 70-99 mg/dl Test 10/28/17 05:25 Range/Units Assessment & Plan peforated esophageal CA w/pelvic abscesses -slow response to IV abx -NPO -if does not improve will need IR drainage or possible diag lap anddrainage -consider Hospice peforated esophageal CA w/pelvic abscesses -responding to IV abx -NPO -not wanted any intervention -consider Hospice
[2017-10-28 07:18] LABS: BLOOD UREA NITROGEN 20 mg/dl (7-18); BUN/CREATININE RATIO 60.7 (10-20); CALCIUM 7.3 mg/dl (8.5-10.1); CARBON DIOXIDE 26 mmol/L (21-32); CHLORIDE 104 mmol/L (98-107); CREATININE 0.33 mg/dl (0.60-1.40); GLUCOSE 154 mg/dl (70-99); MAGNESIUM 1.7 mg/dl (1.8-2.4); POTASSIUM 4.3 mmol/L (3.5-5.1); SODIUM 136 mmol/L (136-145)
[2017-10-28 07:19] VITALS: BP 103/67; PULSE 115; TEMP 36.5; O2SAT 95
[2017-10-28 07:19] LABS: PHOSPHORUS 2.9 mg/dl (2.5-4.9); TRIGLYCERIDES 56 mg/dl (0-150)
[2017-10-28] MEDS: METRONIDAZOLE / NSS 500 MG in PREMIXED NSS 100 ML IV SCH (07:36)
[2017-10-28] MEDS: PANTOprazole INJ 40 MG in SYRINGE 0 ML IV SCH (07:36)
[2017-10-28] MEDS: CEFEPIME IV 2,000 MG in SYRINGE 7.5 ML IV SCH (07:36)
[2017-10-28 08:00] VITALS: O2SAT 95
[2017-10-28] MEDS ORDERED: TPN~STOP ORDER ONE (09:00)
[2017-10-28] MEDS: D5W AND NSS 1,000 ML IV SCH (09:05)
[2017-10-28] MEDS ORDERED: MAGNESIUM SULFATE 1GM / D5W 1 GM in PREMIXED IN D5W 100 ML IV ONE (11:30)
[2017-10-28] MEDS: ENOXAPARIN 30 MG/0.3 ML SYR SQ SCH (13:13)
[2017-10-28] MEDS: SODIUM CHLORIDE 0.9% 1000ML 1,000 ML IV SCH (14:02)
--- NOTE | 2017-10-28 14:03 | Progress Note ---
Internal Med Progress Note Date of Service: Oct 28, 2017. Provider Documentation: SUBJECTIVE: complain of intermittent abdominal pain requiring morphine every 1 hr sister present at bedside pt does not want any intervention , no TPN ,no antibiotic wants to be comfortable , on IV morphine gtt if needed discuss with pt and sister regarding end of life care with his poor prognosis and terminal illness -Hospice /comfort care is appropriate POLST form signed -pt wants to be DNR, comfort care only , no antibiotics , no artificial means of nutrition ordered for IV morphine SPEECH PROFESSOR -as pt is alert awake and conversing , able to make decisions if pt still having pain while on SPEECH PROFESSOR /becomes unresponsive but still in discomfort -we will consider cont IV morphine infusion for comfort pt wants to assign his Sister as POA for medical decision making does no have living will Patient traffic representative consulted POLST signed and given to patient , copy attached to file OBJECTIVE: Vital Signs-as noted below minimum exam for comfort care Exam: General-chronically ill appearing , cachetic ENT-dry oral mucosa Abdomen-scaphoid, multiple drain present Extremities-no rash Neuro-alert , oriented to place and person Lab data as noted below. ASSESSMENT & PLAN: TERMINAL END STAGE ESOPHAGEAL CA very poor prognosis comfort care hospice Palliative care input appreciated IV morphine SPEECH PROFESSOR for pain control can be transitioned to IV morphine gtt if pt's condition declines DNR/DNI DISPOSITION end stage /terminal status pt may this hospital stay on hospice comfort care Sister updated at bedside Vital Signs: Date Time Temp Pulse Resp B/P (MAP) Pulse Ox O2 Delivery O2 Flow Rate FiO2 10/28/17 08:00 95 Room Air 10/28/17 07:19 36.5 115 20 103/67 (79) 95 Room Air 10/28/17 04:31 36.3 104 20 92/60 (71) 97 Room Air 10/28/17 00:00 Room Air 10/27/17 22:41 36.5 88 18 118/71 (87) 97 Room Air 10/27/17 19:45 36.4 116 18 90/61 (71) 98 Room Air 10/27/17 16:15 Room Air 10/27/17 14:45 36.6 92 18 107/67 (80) 96 Lab Results: Results Past 24 Hours Test 10/27/17 18:43 10/28/17 00:25 10/28/17 05:25 10/28/17 07:30 Range/Units Bedside Glucose 88 175 194 70-99 mg/dl Sodium Level 136 136-145 mmol/L Potassium Level 4.3 3.5-5.1 mmol/L Chloride Level 104 98-107 mmol/L Carbon Dioxide Level 26 21-32 mmol/L Anion Gap 6.0 3-11 mmol/L Blood Urea Nitrogen 20 7-18 mg/dl Creatinine 0.33 0.60-1.40 mg/dl Est Creatinine Clear Calc Drug Dose 207.4 ml/min Estimated GFR () > 150.0 Estimated GFR (Non- 139.7 BUN/Creatinine Ratio 60.7 10-20 Random Glucose 154 70-99 mg/dl Calcium Level 7.3 8.5-10.1 mg/dl Phosphorus Level 2.9 2.5-4.9 mg/dl Magnesium Level 1.7 1.8-2.4 mg/dl Triglycerides Level 56 0-150 mg/dl
[2017-10-28] MEDS ORDERED: MoRPHine SULFATE 1 MG/ML 50 ML PCA CASS ONE (14:20)
[2017-10-29] MEDS: D5W AND NSS 1,000 ML IV SCH (07:29)
[2017-10-29] MEDS: MoRPHine SULFATE 1 MG/ML 50 ML PCA CASS IV PRN (07:30)
[2017-10-29] MEDS: SODIUM CHLORIDE 0.9% 1000ML 1,000 ML IV SCH (12:33)
[2017-10-29] MEDS ORDERED: ATROPINE SULFATE 1% OP SOLN 5 ML BTL SL PRN (15:00)
[2017-10-29] MEDS ORDERED: SCOPOLAMINE 1.5 MG TDSY TD SCH (15:00)
--- NOTE | 2017-10-29 16:03 | Palliative Care Progress Note ---
Palliative Care Progress Note Date of Service Oct 29, 2017. Subjective Pt evaluation today including: conversation w/ patient, conversation w/ family (sister/POA, Francia Sutherland), physical exam, chart review, conversation w/ internet marketing consultant (updated Dr. Koroma) Pain: 2-3/10 PO Intake: minimal sips/ice chips Voiding: shine catheter in place (concentrated adal urine) -Patient is drowsy but awake and oriented. -Over weekend, was made comfort measures only. Stopped abx and TPN. -Is on morphine NAILING MACHINE OPERATOR AUTOMATIC pump 1mg/hr continuous with a 1mg bolus Q10min. Received about 34mg (102mg oral morphine equivalent) in first 24 hours. -Patient is not hungry at all, does not want to eat. Only sipping water and eating little ice chips. Review of Systems Constitutional: + weakness, + fatigue ENT: No trouble swallowing Respiratory: No cough, No shortness of breath Cardiac: No chest pain, No edema Abdomen: + pain, No nausea, No vomiting Male : No problem reported Psychiatric: No depression symptoms, No anxiety Objective Vital Signs Date Time Temp Pulse Resp B/P (MAP) Pulse Ox O2 Delivery O2 Flow Rate FiO2 10/29/17 08:00 Room Air 10/29/17 00:00 Room Air 10/28/17 16:00 Room Air Physical Exam General Appearance: no apparent distress, + cachetic, + thin ENT: hearing grossly normal Neck: supple, no JVD Cardiovascular: regular rate, rhythm, no edema Abdomen: normal bowel sounds, non tender, soft Neurologic/Psychiatric: normal mood/affect, oriented x 3 (drowsy) Assessment and Plan Problem list: Chest pain- resolved Weight loss Weakness Abdominal pain- 2-3, well-controlled on the morphine NAILING MACHINE OPERATOR AUTOMATIC pump Esophageal cancer- s/p 3 rounds chemo- last dose 10/04. S/p XRT- last treatment 10/05. [place] [facility] [place] Strict NPO status- is on TPN at home during the night Goals of care (Z51.5) Palliative care recs: discussed with patient, sister/NEMO Sutherland, and Dr. Koroma. -Patient is comfort measures only. Is level 5 DNR. -No abx, no TPN. -Is on NAILING MACHINE OPERATOR AUTOMATIC morphine pump at 1mg/hr continuous with 1mg bolus dose 10min lockout. -Would start fentanyl patch 37mcg/hr and cut the continuous morphine dose. Keep NAILING MACHINE OPERATOR AUTOMATIC dose for now. Can transition to oral Roxanol if pain well controlled and once we see what PRN needs are with fentanyl patch. -Please place the fentanyl patch on the right upper thigh- where he has the most subq fat and little hair to aid in absorption. -Spoke with patient and his sister/POElana Feldman about options: home with hospice vs. SNF with hospice. Francia plans to come in this evening and have a conversation with the patient. They will let us know their decision. Thank you again for this consult. I will follow as needed.
[2017-10-29] MEDS: CHECK SCOPOLAMINE PATCH PLACEMENT SCH (16:13)
--- NOTE | 2017-10-29 19:18 | Surgery Progress Note ---
Surgery Progress Note Date of Service Oct 29, 2017. Subjective pt feels better, but pt dose not want to do any more surgery on him, He wants to do palliative care only. Objective Vital Signs: Date Time Temp Pulse Resp B/P (MAP) Pulse Ox O2 Delivery O2 Flow Rate FiO2 10/29/17 16:00 Room Air 10/29/17 08:00 Room Air 10/29/17 00:00 Room Air General Appearance: WD/WN Head: normocephalic Neck: supple Respiratory/Chest: chest non-tender Cardiovascular: regular rate, rhythm Abdomen: normal bowel sounds, non tender, non distended Assessment & Plan pt wants to do palliative care only, D/W benefits, risks and alternatives of palliative care, pt understood, he dose not want to any more surgery sign off today, please call us if need us Thanks,
[2017-10-29] MEDS ORDERED: FENTANYL 25 MCG/HR TDSY TD SCH (20:00)
[2017-10-29] MEDS ORDERED: FENTANYL 12 MCG/HR TDSY TD SCH (20:00)
--- NOTE | 2017-10-29 21:39 | Progress Note ---
Internal Med Progress Note Date of Service: Oct 29, 2017. Provider Documentation: SUBJECTIVE: remains in comfort care on Morphine RESTAURANT SUPERVISOR OBJECTIVE: Vital Signs-as noted below Exam: General-ill appearing male , cachetic Eyes-sclera non icteric ENT-dry oral mucosa Lungs-diminished breath sound Heart-regular Abdomen-scaphoid , multiple drain present , G tube Extremities-cachetic Neuro-very lethargic and tired , no obvious focal deficit noted Lab data as noted below. ASSESSMENT & PLAN: DISTAL ESOPHAGEAL CA S/P CHEMO RADIATION /PELVIC ABSCESS had recent abdominal surgery for perforated esophagus on 09/2017 [facility] ABDOMEN/PELVIS SHOWS : two pelvic abscesses are present, the larger in the posterior right pelvis measuring 6.5 cm and the smaller in the anterior left pelvis measuring 3.9 cm. very poor prognosis pt does not want any intervention done , does not want TPN any more wants to be comfortable all IVF and IV antibiotics d/yonis -notified Pharmacy to D/C TPN IV Morphine RESTAURANT SUPERVISOR for intractable abdomen and pelvic pain POLST form signed , pt requests comfort measures only no artificial nutrition ,no Abx or any intervention to prolong life wants to have a natural will continue pain control added Fentanyl patch as per Palliative care recommendation plan is to wean off IV Morphine RESTAURANT SUPERVISOR and transition to fentanyl Patch and PO Roxanol if tolerated ( pt has severe dysphagia ) scopolamine patch ordered DNR /DNI Very poor prognosis with terminal end stage status DISPOSITION poor prognosis with limited life expectancy cont comfort care return home with hospice if pain is controlled with oral meds and Fentanyl patch Vital Signs: Date Time Temp Pulse Resp B/P (MAP) Pulse Ox O2 Delivery O2 Flow Rate FiO2 10/30/17 07:44 Room Air 10/30/17 00:00 Room Air 10/29/17 16:00 Room Air
[2017-10-30] MEDS ORDERED: CHECK FENTANYL PATCH PLACEMENT SCH
[2017-10-30] MEDS: CHECK SCOPOLAMINE PATCH PLACEMENT SCH ×3 (00:26→15:13)
[2017-10-30] MEDS: CHECK FENTANYL PATCH PLACEMENT SCH ×3 (00:27→15:14)
[2017-10-30] MEDS: MoRPHine SULFATE 1 MG/ML 50 ML PCA CASS IV PRN (03:01)
--- NOTE | 2017-10-30 13:54 | Palliative Care Progress Note ---
Palliative Care Progress Note Date of Service Oct 30, 2017. Subjective Pt evaluation today including: conversation w/ patient, conversation w/ family (sisterFrancia), physical exam, chart review, conversation w/ interior design consultant , review of inpatient medication list Pain: 2 PO Intake: minimal Voiding: shine catheter in place -Patient is awake and oriented x3 but is very forgetful. Seems to be "foggy- headed." -Morphine AIR CONDITIONER INSTALLER HELPER pump at 1mg/hr continuous with 1mg Q10min for AIR CONDITIONER INSTALLER HELPER dose. -Spoke with patient and sister, Francia Sutherland. They'd like referral to [facility] for comfort care. Review of Systems Constitutional: + weakness ENT: No trouble swallowing Respiratory: No cough, No shortness of breath Cardiac: No chest pain, No edema Abdomen: + pain, No nausea, No vomiting Psychiatric: No anxiety Objective Vital Signs Date Time Temp Pulse Resp B/P (MAP) Pulse Ox O2 Delivery O2 Flow Rate FiO2 10/30/17 07:44 Room Air 10/30/17 00:00 Room Air 10/29/17 16:00 Room Air Physical Exam General Appearance: no apparent distress, + cachetic, + thin ENT: hearing grossly normal Neck: supple, no JVD Respiratory/Chest: no respiratory distress, no accessory muscle use, + decreased breath sounds Cardiovascular: regular rate, rhythm, + normal peripheral pulses Abdomen: normal bowel sounds, soft, + pertinent finding (multiple wounds/drains ) Neurologic/Psychiatric: normal mood/affect, oriented x 3 (but forgetful), + pertinent finding (awake but slightly drowsy) Assessment and Plan Problem list: Chest pain- resolved Weight loss Weakness Abdominal pain- 01/05, well-controlled on the morphine AIR CONDITIONER INSTALLER HELPER pump Esophageal cancer- s/p 3 rounds chemo- last dose 10/04. S/p XRT- last treatment 10/05. Gastric perforation s[place] [facility] [place] Strict NPO status- is on TPN at home during the night- is now discontinued Goals of care (Z51.5) Palliative care recs: discussed with patient, sister/NEMO Sutherland, and Dr. Koroma. -Patient is comfort measures only. Is level 5 DNR. -Is on AIR CONDITIONER INSTALLER HELPER morphine pump at 1mg/hr continuous with 1mg bolus dose 10min lockout. -Would start fentanyl patch 50mcg/hr and cut the continuous morphine dose. Keep AIR CONDITIONER INSTALLER HELPER dose for now. Can transition to oral Roxanol if pain well controlled and once we see what PRN needs are with fentanyl patch. -Please place the fentanyl patch on the right upper thigh- where he has the most subq fat and little hair to aid in absorption. -Spoke with patient and his sister/POA Francia about options, they would like a referral to [facility] for comfort care. manager highway aware. Thank you again for this consult. I will follow as needed. Palliative Performance Scale: 20 % Discharge planning: [facility] (for comfort/hospice care)
[2017-10-30] MEDS ORDERED: NURSING VERBAL MED ORDER ONE (14:00)
[2017-10-30] MEDS: SODIUM CHLORIDE 0.9% 1000ML 1,000 ML IV SCH (15:13)
--- NOTE | 2017-10-30 15:24 | Progress Note ---
Internal Med Progress Note Date of Service: Oct 30, 2017. Provider Documentation: SUBJECTIVE: resting comfortably denies pain denies sob not eating afebrile OBJECTIVE: Vital Signs-as noted below Exam: General-alert and awake and oriented ENT-normal hearing Neck-no neck masses Lungs-cta b/l no wheezing or crackles Heart-s1 and s2 heard regular rate and rhythm no murmurs Abdomen-soft BS sluggish no distension Extremities-no edema no erythema Neuro-alert and awake moves extremities Lab data as noted below. ASSESSMENT & PLAN: DISTAL ESOPHAGEAL CA S/P CHEMO RADIATION /PELVIC ABSCESS had recent abdominal surgery for perforated esophagus on 09/2017 [facility] [address] ABDOMEN/PELVIS SHOWS : pelvic abscess denying any treatment currently. off of abx and tube feeds. Does not want tertiary care transfer initially received abx but currently patient on comfort care DNR /DNI Very poor prognosis with terminal end stage status Vital Signs: Date Time Temp Pulse Resp B/P (MAP) Pulse Ox O2 Delivery O2 Flow Rate FiO2 10/30/17 07:44 Room Air 10/30/17 00:00 Room Air 10/29/17 16:00 Room Air
[2017-10-31] MEDS: CHECK FENTANYL PATCH PLACEMENT SCH ×3 (01:25→15:39)
[2017-10-31] MEDS: MoRPHine SULFATE 1 MG/ML 50 ML PCA CASS IV PRN ×2 (01:26→20:49)
[2017-10-31] MEDS: CHECK SCOPOLAMINE PATCH PLACEMENT SCH ×3 (01:26→15:39)
[2017-10-31] MEDS: SODIUM CHLORIDE 0.9% 1000ML 1,000 ML IV SCH (14:02)
--- NOTE | 2017-10-31 17:27 | Progress Note ---
Internal Med Progress Note Date of Service: Oct 31, 2017. Provider Documentation: SUBJECTIVE: resting comfortably pain under control no complaints OBJECTIVE: Vital Signs-as noted below Exam: General-alert and awake and oriented ENT-normal hearing Neck-no neck masses Lungs-cta b/l no wheezing or crackles Heart-s1 and s2 heard regular rate and rhythm no murmurs Abdomen-soft BS sluggish no distension Extremities-no edema no erythema Neuro-alert and awake moves extremities Lab data as noted below. ASSESSMENT & PLAN: DISTAL ESOPHAGEAL CA S/P CHEMO RADIATION /PELVIC ABSCESS had recent abdominal surgery for perforated esophagus on 09/2017 [facility] CT ABDOMEN/PELVIS SHOWS : pelvic abscess denying any treatment currently. off of abx and tube feeds. Does not want tertiary care transfer initially received abx but currently patient on comfort care to continue comfort care DNR /DNI Very poor prognosis with terminal end stage status Vital Signs: Date Time Temp Pulse Resp B/P (MAP) Pulse Ox O2 Delivery O2 Flow Rate FiO2 10/31/17 16:00 Room Air 10/31/17 08:00 Room Air 10/31/17 00:15 Room Air 10/30/17 20:10 Room Air
[2017-11-01] MEDS: CHECK SCOPOLAMINE PATCH PLACEMENT SCH (00:14)
[2017-11-01] MEDS: CHECK FENTANYL PATCH PLACEMENT SCH (00:14)
[2017-11-01] MEDS: SODIUM CHLORIDE 0.9% 1000ML 1,000 ML IV SCH (00:15)
--- NOTE | 2017-11-01 18:36 | Discharge Summary ---
Discharge Summary Date of Service Nov 01, 2017. Discharge Summary Admission Date: Oct 26, 2017 at 13:15 Discharge Disposition: Principal Diagnosis: DISTAL ESOPHAGEAL CA S/P CHEMO RADIATION /PELVIC ABSCESS Secondary Diagnoses/Problems: for CAD, esophageal cancer status post chemoradiation, ongoing tobacco abuse, hypertension, PVD as per records, chronic anemia (baseline hemoglobin 9) Procedures: CTA/CHEST: 1. Study is negative for pulmonary embolus. 2. Peribronchial and interstitial prominence of the lower lungs bilaterally. CT ABD/PELVIS: 1. Postsurgical changes with pneumoperitoneum and [address] in [address] in the upper abdomen. 2. The absence of oral contrast limits evaluation for bowel leak. Within this limitation, two pelvic abscesses are present, the larger in the posterior right pelvis measuring 6.5 cm and the smaller in the anterior left pelvis measuring 3.9 cm. These are intimately associated with adjacent bowel as detailed above. 3. Subcapsular hepatic and splenic collections. An infectious etiology/abscess cannot be excluded. 4. Bibasilar tree-in-bud opacities suggest bronchiolitis. Besides infectious bronchiolitis etiologies, this could represent aspiration especially given the presence of segmental and subsegmental bronchial debris. 5. Prostatomegaly with chronic bladder outlet obstruction. 6. Gastrostomy tube appropriately positioned. 7. Infrarenal abdominal aortic ectasia. Consultations: SURGERY PALLIATIVE CARE Admission Information HPI (per Admitting provider): History obtained from patient, sister and records. Medical history is significant for CAD, esophageal cancer status post chemoradiation, ongoing tobacco abuse, hypertension, PVD as per records, chronic anemia (baseline hemoglobin 9) Patient diagnosed to have stage III distal esophageal cancer in July of 2017. Subsequently underwent chemoradiation. Patient admitted at [facility] from 10/08- for perforated carcinoma of the esophagus. Patient underwent diagnostic laparoscopy with drain placement, percutaneous endoscopic gastrostomy. Discharged on TPN, strict nothing by mouth instructions, IV PPI and prophylactic Lovenox subcutaneous injections. Home oral cardiac medications held on discharge. Patient and family awaiting plans for future management pending tumor board discussion this week. Last night, patient noted pleuritic left-sided chest pain, nonradiating, achy with some shortness of breath, palpitations different from heart attack in the past. Denies cough symptoms. He also noted central abdominal discomfort, achy, some nausea, no vomiting. Loose stools noted. Patient brought to the Emergency Room. Physical Exam (per Admitting): VITAL SIGNS: Blood pressure noted to be initially 89/67 later 110/69, pulse rate 120, later 99, RR 24, temperature 36.6, sats 89 on room air, later 91 on 4 liters. GENERAL: Noted to be hyposthenic, min respiratory distress, anxious. SKIN: Pallor, warm. HEENT: Pale palpebral conjuctivae. No ptosis. Dry buccal mucosa. NECK: Supple. No tenderness. LUNGS: Decreased breath sounds. No chest wall tenderness. HEART: Tachycardic, systolic murmur. ABDOMEN: Scaphoid abdomen, some tenderness on light palpation. G-tube noted. Drains noted exiting from the abdominal wall. EXTREMITIES: No LE edema, no tenderness. No gross deformity. NEUROLOGIC: Coherent. No gross focality Hospital Course PATIENT TODAY 11/01/17 AT 5:15AM DISTAL ESOPHAGEAL CA S/P CHEMO RADIATION /PELVIC ABSCESS had recent abdominal surgery for perforated esophagus on 09/[address] [facility] CT ABDOMEN/PELVIS SHOWS : pelvic abscess denying any treatment currently. off of abx and tube feeds. Does not want tertiary care transfer initially received abx but currently patient on comfort care to continue comfort care DNR /DNI Very poor prognosis with terminal end stage status Total time spent on discharge = 30MINUTES This includes examination of the patient, discharge planning, medication reconciliation, and communication with other providers. Discharge Instructions NO D/C INSTRUCTIONS PATIENT
[2017-11-01] MEDS ORDERED: FENTANYL PATCH REMOVE & WASTE SCH ×2 (19:15→19:59)
--- NOTE | 2017-11-05 08:12 | EDITING REQUIRED CODING QUERY ---
CODING QUERY To promote full compliance with coding requirements relating to patient care, provider participation is requested in all cases of internal grinder set up operator uncertainty. Please assist us with the question(s) below: Coding Question(s): Patient with terminal esophageal cancer admitted with chest pain. H/P& C/S documents NSTEMI. Please check the diagnosis you were treating that was reason for admission(etiology of patient' s chest pain). Thanks for your help! . Brian Meyers [facility] Physician's Response(s): ___x____ Chest pain, unspecified NSTEMI Other (please document ; Cannot clinically correlate Principal Diagnosis: "_that condition established after study, to be chiefly responsible for occasioning the admission of the patient to the hospital for care." Co-Existing Principal Diagnosis: "_when two or more diagnoses equally meet the criteria for principal diagnosis as determined by the circumstances of admission, diagnostic work up, and/or therapy provided, and the Alphabetic Index, Tabular List, or another coding guideline does not provide sequencing direction, any one of the diagnoses may be sequenced first." "When the physician has documented what appears to be a current diagnosis in the body of the record, but has not included the diagnosis in the final diagnostic statement, the physician should be asked whether the diagnosis should be added." (Source Coding [facility] 2 QTR90. p3-4)
== END 2017-11-01 09:00 | disposition expired | DRG 374 ==
LOC: EDBD 02:55 → C.EDA 02:57 → C.4E 13:15 → ENRESERV 13:17
PROVIDERS: ADMIT Hospitalist; ATTEND Internal Medicine
DX: C15.5 Malignant neoplasm of lower third of esophagus (principal); K65.1 Peritoneal abscess; Z51.5 Encounter for palliative care; J96.01 Acute respiratory failure with hypoxia; E43 Unspecified severe protein-calorie malnutrition; J69.0 Pneumonitis due to inhalation of food and vomit; R07.81 Pleurodynia; I77.819 Aortic ectasia, unspecified site; I25.10 Atherosclerotic heart disease of native coronary artery without angina pectoris; I10 Essential (primary) hypertension; Z92.3 Personal history of irradiation; I73.9 Peripheral vascular disease, unspecified; F17.210 Nicotine dependence, cigarettes, uncomplicated; Z66 Do not resuscitate; D64.9 Anemia, unspecified; Z93.1 Gastrostomy status; I25.2 Old myocardial infarction